=== PATIENT | male | born 1955 | race African-American/Black ===

== ENCOUNTER 2019-06-03 05:36 | Inpatient (IN) | payer MEDICARE, OTHER ==
[~2019-06-03] VITALS: Ht 182.9 cm; Wt 90.3 kg
[~2019-06-03 05:36] MED LIST: ALFUZOSIN HCL10 MG PO; AMLODIPINE BESY10 MG ORAL; AZITHROMYCIN250 MG ORAL; NEVIRAPINE200 MG PO; antiviral
[2019-06-03] MEDS ORDERED: ATORVASTATIN CA20 MG ORAL (05:46)
[2019-06-03] MEDS ORDERED: TRIUMEQ 600-501 EACH PO (05:46)
--- NOTE | 2019-06-03 06:07 | Emergency Room Report ---
History of Present Illness General Chief Complaint: Chest Pain Source: Patient (RafiaAugustine [facility]) Present Illness HPI Patient presents with complaints of midsternal chest pain sharp Reports that he had discomfort 2 days ago while in [place] however it has persisted Denies any pleurisy denies any shortness of breath denies any vomiting or diarrhea Patient feels that he gets more short of breath with any exertion Denies any back or flank pain Patient reports that he feels that he has the flu as well Patient also reports falling about 1 month ago in a ditch in [place] injured his left lower leg But feels that it is also improving (Augustine Morataya DO) Allergies: Coded Allergies: ERYTHROMYCIN BASE (Verified Allergy, Unknown, 05/10/15) Patient History Past Medical History: see triage record Reviewed Nursing Documentation: PMH: Agreed; PSxH: Agreed (Augustine Morataya DO) Nursing Documentation-PMH Past Medical History: No History, Except For Hx Hypertension: Yes Hx Cancer: Yes - kidney (Augustine Morataya DO) Review of Systems All Other Systems: negative except mentioned in HPI (Augustine Morataya DO) Physical Exam Vital Signs Date Time Temp Pulse Resp B/P (MAP) Pulse Ox O2 Delivery O2 Flow Rate FiO2 06/03/19 05:39 97.3 62 16 174/102 (126) 99 Room Air Sp02 EP Interpretation: reviewed, normal General Appearance: well appearing, no apparent distress Head: normocephalic, atraumatic Eyes: bilateral eye PERRL, bilateral eye EOMI ENT: hearing grossly normal, normal pharynx, TMs + canals normal, uvula midline Neck: full range of motion, supple, no meningismus, no bony tend Respiratory: lungs clear, normal breath sounds, no rhonchi, no respiratory distress, no retraction, no accessory muscle use Cardiovascular #1: normal peripheral pulses, regular rate, rhythm, no edema, no gallop, no JVD, no murmur Gastrointestinal: normal bowel sounds, non tender, soft, no mass, no organomegaly, non-distended, no guarding, no hernia, no pulsatile mass, no rebound Genitourinary: no CVA tenderness Musculoskeletal: other - Evidence of healing wound left anterior tibial area distally and mid region no obvious surrounding erythema Neurologic: motor strength/tone normal, photograph tinter III-XII nml as tested, oriented x3 , sensory intact, responsive Psychiatric: mood/affect normal Skin: other - As above Lymphatic: normal inspection, no adenopathy (Augustine Morataya DO) Medical Decision Making Diagnostic Impression: Primary Impression: ACS (acute coronary syndrome) ER Course Patient is a fairly complex patient with multiple differential to consideration including but not limited to cardiac cardiopulmonary and vascular emergencies Patient has extensive blood work initiated with imaging study Provided with aspirin here initially is pain-free upon reevaluation and nitroglycerin was held Labs Test 06/03/19 05:55 06/03/19 14:50 06/04/19 04:40 White Blood Count 5.0 K/UL (4.8-10.8) Red Blood Count 5.17 M/UL (4.70-6.10) Hemoglobin 14.5 G/DL (14.2-18.0) Hematocrit 44.2 % (42.0-52.0) Mean Corpuscular Volume 86 FL (80-99) Mean Corpuscular Hemoglobin 28.0 PG (27.0-31.0) Mean Corpuscular Hemoglobin Concent 32.8 G/DL (32.0-36.0) Red Cell Distribution Width 12.9 % (11.6-14.8) Platelet Count 67 K/UL (150-450) Mean Platelet Volume 11.5 FL (6.5-10.1) Neutrophils (%) (Auto) % (45.0-75.0) Lymphocytes (%) (Auto) % (20.0-45.0) Monocytes (%) (Auto) % (1.0-10.0) Eosinophils (%) (Auto) % (0.0-3.0) Basophils (%) (Auto) % (0.0-2.0) Differential Total Cells Counted 100 Neutrophils % (Manual) 28 % (45-75) Lymphocytes % (Manual) 64 % (20-45) Monocytes % (Manual) 6 % (1-10) Eosinophils % (Manual) 2 % (0-3) Basophils % (Manual) 0 % (0-2) Band Neutrophils 0 % (0-8) Platelet Estimate Adequate Platelet Morphology See comment Clumped Platelets 2+ Red Blood Cell Morphology Normal Sodium Level 139 MMOL/L (136-145) 137 MMOL/L (136-145) Potassium Level 4.3 MMOL/L (3.5-5.1) 4.1 MMOL/L (3.5-5.1) Chloride Level 103 MMOL/L (98-107) 103 MMOL/L (98-107) Carbon Dioxide Level 30 MMOL/L (21-32) 24 MMOL/L (21-32) Anion Gap 6 mmol/L (5-15) 10 mmol/L (5-15) Blood Urea Nitrogen 23 mg/dL (7-18) 22 mg/dL (7-18) Creatinine 1.4 MG/DL (0.55-1.30) 1.2 MG/DL (0.55-1.30) Estimat Glomerular Filtration Rate > 60 mL/min (>60) > 60 mL/min (>60) Glucose Level 97 MG/DL (74-106) 108 MG/DL (74-106) Calcium Level 9.8 MG/DL (8.5-10.1) 9.2 MG/DL (8.5-10.1) Total Bilirubin 0.7 MG/DL (0.2-1.0) 0.6 MG/DL (0.2-1.0) Aspartate Amino Transf (AST/SGOT) 62 U/L (15-37) 43 U/L (15-37) Alanine Aminotransferase (ALT/SGPT) 49 U/L (12-78) 38 U/L (12-78) Alkaline Phosphatase 109 U/L (46-116) 87 U/L (46-116) Troponin I 0.003 ng/mL (0.000-0.056) 0.008 ng/mL (0.000-0.056) 0.000 ng/mL (0.000-0.056) Pro-B-Type Natriuretic Peptide 51 pg/mL (0-125) Total Protein 9.8 G/DL (6.4-8.2) 8.2 G/DL (6.4-8.2) Albumin 4.5 G/DL (3.4-5.0) 3.5 G/DL (3.4-5.0) Globulin 5.3 g/dL 4.7 g/dL Albumin/Globulin Ratio 0.8 (1.0-2.7) 0.7 (1.0-2.7) Lipase 354 U/L (73-393) Triglycerides Level 106 MG/DL (30-150) Cholesterol Level 264 MG/DL (< 200) LDL Cholesterol 178 mg/dL (<100) HDL Cholesterol 40 MG/DL (40-60) Cholesterol/HDL Ratio 6.6 (3.3-4.4) Thyroid Stimulating Hormone (TSH) 1.006 uiU/mL (0.358-3.740) (Augustine Morataya DO) ER Course Please see above note. Patient remains pain-free. Evaluated by Dr. Becerril in ED. (Александр Richardson MD) EKG Diagnostic Results Rate: normal Rhythm: NSR ST Segments: other - Nonspecific ST changes (Augustine Morataya DO) Rhythm Strip Diag. Results EP Interpretation: yes Rate: 60 Rhythm: NSR, no PVC's, no ectopy (Augustine Morataya DO) Rhythm: NSR, no PVC's, no ectopy (Александр Richardson MD) Chest X-Ray Diagnostic Results Chest X-Ray Diagnostic Results : Chest X-Ray Ordered: Yes # of Views/Limited/Complete: 1 View Indication: Chest Pain EP Interpretation: Yes Interpretation: no consolidation, no effusion, no pneumothorax Impression: No acute disease Electronically Signed by: Augustine Morataya DO (Augustine Morataya DO) Last Vital Signs Date Time Temp Pulse Resp B/P (MAP) Pulse Ox O2 Delivery O2 Flow Rate FiO2 06/03/19 05:39 97.3 62 16 174/102 (126) 99 Room Air Status: improved (Augustine Morataya DO) Last Vital Signs Date Time Temp Pulse Resp B/P (MAP) Pulse Ox O2 Delivery O2 Flow Rate FiO2 06/03/19 20:00 98.1 76 20 131/79 (96) 100 06/03/19 14:58 Room Air Status: improved (Александр Richardson MD) Disposition: ADMITTED INPATIENT Condition: Serious Augustine Morataya DO Jun 03, 2019 06:08 Александр Richardson MD Jun 03, 2019 20:20
[2019-06-03 06:08] VITALS: BP 174/102
[2019-06-03 06:39] LABS: HEMATOCRIT 44.2 % (42.0-52.0); HEMOGLOBIN 14.5 G/DL (14.2-18.0); MEAN CORPUSCULAR VOLUME 86 FL (80-99); PLATELET COUNT 67 K/UL (150-450); RED BLOOD COUNT 5.17 M/UL (4.70-6.10); RED CELL DISTRIBUTION WIDTH 12.9 % (11.6-14.8)
[2019-06-03 06:53] LABS: ANION GAP 6 mmol/L (5-15); BLOOD UREA NITROGEN 23 mg/dL (7-18); CALCIUM 9.8 MG/DL (8.5-10.1); CARBON DIOXIDE 30 MMOL/L (21-32); CHLORIDE 103 MMOL/L (98-107); CREATININE 1.4 MG/DL (0.55-1.30); POTASSIUM 4.3 MMOL/L (3.5-5.1); SODIUM 139 MMOL/L (136-145)
[2019-06-03 07:04] LABS: ALANINE AMINOTRANSFERASE 49 U/L (12-78); ALBUMIN 4.5 G/DL (3.4-5.0); ALBUMIN/GLOBULIN RATIO 0.8 (1.0-2.7); ALKALINE PHOSPHATASE 109 U/L (46-116); ASPARTATE AMINO TRANSFERASE 62 U/L (15-37); BILIRUBIN,TOTAL 0.7 MG/DL (0.2-1.0)
[2019-06-03 07:15] VITALS: BP 168/95
[2019-06-03 09:10] VITALS: BP 174/101
[2019-06-03 12:00] VITALS: BP 159/95
--- NOTE | 2019-06-03 12:08 | Diagnostic Imaging Report ---
Indication: Chest pain Technique: One view of the chest Comparison: 11/10/2005 Findings: Lungs and pleural spaces are clear. Heart size is normal. No significant interim change Impression: No acute process
[2019-06-03] MEDS ORDERED: Zolpidem 5mg tab ORAL PRN (13:30)
[2019-06-03] MEDS ORDERED: Milk of Magnesia 30ml Ud ORAL PRN (13:30)
[2019-06-03] MEDS ORDERED: HydrALAZINE 25mg tab ORAL PRN (13:30)
[2019-06-03] MEDS: Aspirin Baby 81mg ORAL SCH (14:09)
[2019-06-03 16:00] VITALS: BP 137/80
[2019-06-03 20:00] VITALS: BP 131/79
[2019-06-03] MEDS: Atorvastatin 20mg tab ORAL SCH (20:40)
[2019-06-04] VITALS (7 sets, daily range): BP systolic 124–157; BP diastolic 76–97
--- NOTE | 2019-06-04 03:30 | Consultation ---
DATE OF CONSULTATION: 06/03/2019 CARDIOLOGY CONSULTATION CONSULTING PHYSICIAN: Александр Thakur M.D. REQUESTING PHYSICIAN: Angel Becerril M.D. REASON FOR CONSULTATION: Chest pain. HISTORY OF PRESENT ILLNESS: This is a 64-year-old male, presented to the emergency room today complaining of several days of chest discomfort and shortness of breath on exertion. He notes that he has not had any cough or sputum production, but he does feel congested and as if he had the flu. The patient has been in [place] for almost a year during a sabbatical. He notes that he ran out of his usual blood pressure and HIV medications four to six months ago. PAST MEDICAL HISTORY: Includes hypertension, history of kidney cancer with nephrectomy, HIV positive, hyperlipidemia, and prostatic hypertrophy. ALLERGIES: Erythromycin. PRESCRIBED MEDICATIONS: Reviewed and reconciled. FAMILY HISTORY: Noncontributory. SOCIAL HISTORY: Denies smoking, alcohol, or substance abuse. REVIEW OF SYSTEMS: A ten-point review of systems performed. No loss of vision or hearing. No history of positive PPD. No prior stress test. No history of irregular heartbeats or rheumatic heart disease. No illnesses during his recent travel. No history of seizure or stroke. He does have single kidney as described above. He has not noted any change in bowel habits. There is no known history of diabetes or thyroid disorder. He has been prescribed statin therapy in the past. The patient states that he injured his right foot with a fall about a month ago. PHYSICAL EXAMINATION: GENERAL: Well developed and well nourished, in no acute distress. VITAL SIGNS: Blood pressure in the emergency room 174/102, heart rate 62, respiratory rate 16, afebrile, and room air oxygen saturation 99%. HEENT: Conjunctivae pink. Sclerae are anicteric. Oropharynx clear. NECK: Supple. Jugular venous pressure is slightly elevated. LUNGS: With few rales. CARDIAC: Regular rhythm and rate. Normal S1, S2 with a fourth heart sound. ABDOMEN: Soft and nontender. No hepatosplenomegaly. EXTREMITIES: Without edema. There is a wound healing on the left anterior tibia. LABORATORY AND DIAGNOSTIC DATA: EKG with sinus rhythm, nonspecific T-wave abnormality. Troponin level is negative. IMPRESSION: 1. Hypertensive heart disease. 2. Acute on chronic diastolic congestive heart failure. 3. Acute myocardial ischemia. 4. History of hyperlipidemia. 5. HIV AIDS. 6. Medication noncompliance due to travel history. PLAN: 1. Cardiac monitoring. 2. Serial troponins. 3. Restart and titrate cardiovascular regimen for blood pressure control and antianginal benefits. 4. Antiplatelet therapy and statin drug to be resumed. 5. Echocardiogram to be obtained. 6. We will follow subsequent assessment of coronary flow reserve. 7. We will follow once preliminary studies are obtained and blood pressure control has been achieved. 8. Natriuretic peptide assay will be trended. Александр Thakur M.D. DR: SUSANNA JOB#: [id number] CC:
[2019-06-04 06:16] LABS: ALANINE AMINOTRANSFERASE 38 U/L (12-78); ALBUMIN 3.5 G/DL (3.4-5.0); ALBUMIN/GLOBULIN RATIO 0.7 (1.0-2.7); ALKALINE PHOSPHATASE 87 U/L (46-116); ANION GAP 10 mmol/L (5-15); ASPARTATE AMINO TRANSFERASE 43 U/L (15-37); BILIRUBIN,TOTAL 0.6 MG/DL (0.2-1.0); BLOOD UREA NITROGEN 22 mg/dL (7-18); CALCIUM 9.2 MG/DL (8.5-10.1); CARBON DIOXIDE 24 MMOL/L (21-32); CHLORIDE 103 MMOL/L (98-107); CHOLESTEROL 264 MG/DL (< 200); CREATININE 1.2 MG/DL (0.55-1.30); HDL CHOLESTEROL 40 MG/DL (40-60); POTASSIUM 4.1 MMOL/L (3.5-5.1); SODIUM 137 MMOL/L (136-145); TRIGLYCERIDES 106 MG/DL (30-150)
[2019-06-04 07:41] LABS: HEMATOCRIT 57.2 % (42.0-52.0); MEAN CORPUSCULAR VOLUME 84 FL (80-99); PLATELET COUNT 145 K/UL (150-450); RED BLOOD COUNT 6.82 M/UL (4.70-6.10); RED CELL DISTRIBUTION WIDTH 12.7 % (11.6-14.8); WHITE BLOOD COUNT 5.2 K/UL (4.8-10.8)
[2019-06-04 07:49] LABS: HEMOGLOBIN 19.4 G/DL (14.2-18.0)
[2019-06-04] MEDS: Neosporin Oint 15gm TOPIC SCH ×2 (08:00→18:02)
--- NOTE | 2019-06-04 08:00 | History and Physical Report ---
DATE OF ADMISSION: 06/03/2019 CHIEF COMPLAINT: Chest pain. HISTORY OF PRESENT ILLNESS: The patient is a pleasant 64-year-old male. He has a history of HIV, hypertension, history of nephrectomy, hyperlipidemia, and BPH, who presented with complaints of worsening chest pain. According to the patient, he was well. He had recently travelled to [place]. He had been noted the onset of exertional chest pain. He notes that previously he could walk up hills without any problem, but now when walking up hills, he gets chest pain. The pain is relieved with rest. He denies any fevers or chills. He has had no cough. He does feel that he has had "flu symptoms." He also notes that he got a spider bite at the back of his neck. On evaluation in the emergency room, his troponin was negative. EKG was unremarkable. In light of the patient's worsening exertional chest pain, he is now admitted for further evaluation and care. PAST MEDICAL HISTORY: As above. PAST SURGICAL HISTORY: Includes nephrectomy. CURRENT MEDICATIONS: Reconciled and reviewed. ALLERGIES: Include erythromycin. FAMILY HISTORY: Noncontributory. SOCIAL HISTORY: Negative for tobacco, ethanol, or drugs. REVIEW OF SYSTEMS: GENERAL: No fevers or chills. HEENT: No headaches or visual changes. CARDIOPULMONARY: Positive chest pain. Positive shortness of breath. GASTROINTESTINAL: No nausea or vomiting. GENITOURINARY: No urgency or frequency. MUSCULOSKELETAL: No joint pain or swelling. NEUROLOGIC: No evidence of seizures. PHYSICAL EXAMINATION: VITAL SIGNS: Temperature 97.9, pulse 67, respirations 20, and blood pressure 137/86. GENERAL: The patient is well developed, no apparent distress. HEART: Regular rate and rhythm. LUNGS: Clear. ABDOMEN: Soft, nontender, nondistended. EXTREMITIES: Without clubbing, cyanosis, or edema. LABORATORY DATA: White count 5, hemoglobin 14, hematocrit 44, platelet count of 67. Sodium 139, potassium 4.3, creatinine is 1.4. ASSESSMENT: This is a pleasant male with a history of hypertensive heart disease, hyperlipidemia, admitted with complaints of worsening exertional chest pain. PLAN: Serial enzymes. EKGs. Antiplatelet therapy. Continue statin therapy. Cardiology consultation. Stress test per Cardiology. We will check a CD4 count as well as a viral load at the patient's request. . Angel Becerril M.D. DR: TAYLOR JOB#: [id number] CC:
[2019-06-04] MEDS: Aspirin Baby 81mg ORAL SCH (08:57)
[2019-06-04] MEDS: Heparin 5000 units/ml inj SUBQ SCH ×2 (08:58→20:23)
--- NOTE | 2019-06-04 15:45 | Consultation ---
DATE OF CONSULTATION: 06/04/2019 INFECTIOUS DISEASES CONSULTATION CONSULTING PHYSICIAN: Alma Salazar M.D. REFERRING PHYSICIAN: Александр Thakur M.D. REASON FOR CONSULTATION: Fever. 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 He recently had a trip to [facility]. He denies any headache. An Infectious Diseases consultation has been obtained for antibiotics. PAST MEDICAL HISTORY: 1. History of HIV. 2. Hypertension. 3. History of Wilms tumor status post nephrectomy. 4. Hyperlipidemia. 5. Benign prostatic hypertrophy. SOCIAL HISTORY: He does not smoke, drink, or use drugs. FAMILY HISTORY: His mother had leukemia. His father had heart disease. REVIEW OF SYSTEMS: RESPIRATORY: He had fever and chills. He has cough. No shortness of breath. He had chest pain that is improved. CARDIAC: No chest pain currently. No palpitation. No dizziness. No syncope. GASTROINTESTINAL: No nausea. No vomiting. No abdominal pain or diarrhea. MUSCULOSKELETAL: He denies any headaches. MEDICATIONS: As an inpatient, he is on Neosporin ointment, atorvastatin, subcutaneous heparin, Uroxatral, amlodipine, aspirin, hydralazine, Tylenol, Ambien, milk of magnesia. ALLERGIES: . PHYSICAL EXAMINATION: VITAL SIGNS: Temperature of 98.8, T-max of 98.8, pulse of 76, respiratory rate 20, blood pressure 131/79, O2 saturation of 100%. HEENT: Pupils are equally reactive to light and accommodation. Mouth appears clean without thrush. NECK: Supple. No adenopathy. No JVD. CARDIOVASCULAR: Regular rate and rhythm. No murmurs. LUNGS: Clear to auscultation bilaterally. No crackles. No wheezes. ABDOMEN: Soft and nontender. No organomegaly. EXTREMITIES: No cyanosis, no clubbing, no edema. LABORATORY AND DIAGNOSTIC DATA: White count 5.2, hemoglobin 19.4, hematocrit 57.2, MCV 84, platelet count of 145. Sodium 137, potassium 4.1, chloride 103, bicarb 24, BUN 22, creatinine 1.2, glucose 108, calcium 9.2. Total bilirubin 0.6, AST 43, ALT 38, alkaline phosphatase 87. Troponin 0. Total protein 8.2, albumin 3.5. Cholesterol of 264. HIV viral load is pending. Chest x-ray showing no acute process. ASSESSMENT: This is a 64-year-old gentleman with history of HIV, Wilms tumor status post nephrectomy, benign prostatic hypertrophy, hyperlipidemia who comes in with fevers. 1. Fevers that is resolved. 2. HIV. 3. Hypertension. 4. Wilms tumor status post nephrectomy. PLAN: 1. Continue off antibiotics. 2. We will order T-cell count. 3. We will follow up on the HIV viral load. 4. We will follow up cultures. I would like to thank, Dr. Thakur, for this consultation. Alma Salazar M.D. DR: Nathanael JOB#: [id number] CC: Александр Thakur M.D.
[2019-06-04] MEDS: hydroCHLOROthiazide 12.5mg TAB ORAL SCH (18:02)
[2019-06-04] MEDS: Atorvastatin 20mg tab ORAL SCH (20:23)
[2019-06-05] VITALS: BP 126/84
--- NOTE | 2019-06-05 03:30 | Progress Note ---
DATE: 06/04/2019 CARDIOLOGY PROGRESS NOTE SUBJECTIVE: The patient has no chest pain or shortness of breath at rest. He states that his symptoms have been exertional. He notes feeling some congestion and flu-like symptoms today. Nasal swabs are obtained, results are pending. OBJECTIVE: VITAL SIGNS: Blood pressure 153/89 earlier, now 135/86, heart rate 80, respiratory rate 18, and afebrile. HEENT: No nasal discharge. LUNGS: Clear. CARDIAC: Regular. No murmur. ABDOMEN: Soft. EXTREMITIES: No edema. LABORATORY AND DIAGNOSTIC DATA: Echocardiogram with normal ejection fraction. Nasal swab negative for influenza. IMPRESSION: 1. Hypertensive heart disease. 2. Dyslipidemia. 3. Acute diastolic congestive heart failure. 4. Acute coronary insufficiency, likely due to medication noncompliance. PLAN: 1. Continue anti-platelet and anti-lipid drugs. 2. Continue up titration and optimization of antihypertensive control. 3. Myocardial perfusion scan for assessment of coronary flow reserve to follow. Александр Thakur M.D. DR: CYDNEY JOB#: [id number] CC:
[2019-06-05 04:00] VITALS: BP 123/77
[2019-06-05 08:00] VITALS: BP 150/97
--- NOTE | 2019-06-05 08:52 | General Progress Note ---
Assessment/Plan Problem List: (1) HIV disease ICD Codes: B20 - Human immunodeficiency virus [HIV] disease SNOMED: 53897056 (2) Bronchitis ICD Codes: J40 - Bronchitis, not specified as acute or chronic SNOMED: 33188988 (3) ACS (acute coronary syndrome) ICD Codes: I24.9 - Acute ischemic heart disease, unspecified SNOMED: 295001698 Status: stable, progressing Assessment/Plan: stress test antiplt rx wound care thick and thin smear Subjective ROS Limited/Unobtainable: No Constitutional: Reports: fever, weakness HEENT: Reports: no symptoms Cardiovascular: Reports: no symptoms Respiratory: Reports: cough Gastrointestinal/Abdominal: Reports: no symptoms Genitourinary: Reports: no symptoms Neurologic/Psychiatric: Reports: no symptoms Endocrine: Reports: no symptoms Hematologic/Lymphatic: Reports: no symptoms Allergies: Coded Allergies: ERYTHROMYCIN BASE (Verified Allergy, Unknown, 05/10/15) All Systems: reviewed and negative except above Subjective no chest pain worried he has malaria because he was recently in [place] and bitten by mosquitos. Objective Last 24 Hour Vital Signs Date Time Temp Pulse Resp B/P (MAP) Pulse Ox O2 Delivery O2 Flow Rate FiO2 06/05/19 04:00 98.1 70 18 123/77 (92) 98 06/05/19 04:00 69 06/05/19 00:00 98.0 89 19 126/84 (98) 96 06/05/19 00:00 71 06/04/19 21:00 Room Air 06/04/19 20:00 98.1 80 19 124/81 (95) 95 06/04/19 20:00 81 06/04/19 16:00 58 06/04/19 15:59 97.5 80 18 135/86 (102) 97 06/04/19 12:00 66 06/04/19 12:00 97.7 70 20 153/89 (110) 97 06/04/19 09:00 Room Air 06/04/19 08:57 66 139/82 Intake and Output 06/04/19 06/05/19 18:59 06:59 Intake Total 600 ml Balance 600 ml Intake Oral 600 ml # Voids 4 4 # Bowel Movements 1 Height (Feet): 6 Weight (Pounds): 199 General Appearance: WD/WN, alert Neck: supple Cardiovascular: normal rate Respiratory/Chest: chest wall non-tender, lungs clear, normal breath sounds Abdomen: normal bowel sounds, non tender, soft, no organomegaly Edema: no edema noted Arm (L), no edema noted Arm (R), no edema noted Leg (L), no edema noted Leg (R), no edema noted Pedal (L), no edema noted Pedal (R), no edema noted Generalized Angel Becerril MD Jun 05, 2019 08:52
[2019-06-05] MEDS: hydroCHLOROthiazide 12.5mg TAB ORAL SCH (08:54)
[2019-06-05] MEDS: Aspirin Baby 81mg ORAL SCH (08:54)
[2019-06-05] MEDS: Neosporin Oint 15gm TOPIC SCH ×2 (08:54→18:06)
[2019-06-05] MEDS: Heparin 5000 units/ml inj SUBQ SCH ×2 (08:54→20:21)
[2019-06-05] MEDS ORDERED: Neosporin Oint 15gm TOPIC SCH (09:00)
[2019-06-05 09:33] LABS: BASOPHILS % (AUTO) 1.5 % (0.0-2.0); EOSINOPHILS % (AUTO) 0.8 % (0.0-3.0); HEMATOCRIT 44.1 % (42.0-52.0); HEMOGLOBIN 15.4 G/DL (14.2-18.0); LYMPHOCYTES % (AUTO) 47.8 % (20.0-45.0); MEAN CORPUSCULAR VOLUME 81 FL (80-99); MONOCYTES % (AUTO) 8.7 % (1.0-10.0); NEUTROPHILS % (AUTO) 41.2 % (45.0-75.0); PLATELET COUNT 178 K/UL (150-450); RED BLOOD COUNT 5.44 M/UL (4.70-6.10); RED CELL DISTRIBUTION WIDTH 11.2 % (11.6-14.8)
--- NOTE | 2019-06-05 10:29 | Infectious Diseases Prog Note ---
Assessment/Plan Assessment/Plan antibiotics : none A 1. HIV 2. fever resolved 3. hypertension P 1. continue off antibiotics 2. continue neomycin ointment 3. malaria smear Subjective Constitutional: Denies: fever, chills Respiratory: Reports: productive cough - decreased; Denies: shortness of breath Gastrointestinal/Abdominal: Denies: nausea, vomiting, diarrhea Musculoskeletal: Denies: pain Allergies: Coded Allergies: ERYTHROMYCIN BASE (Verified Allergy, Unknown, 05/10/15) Objective Vital Signs Last 24 Hour Vital Signs Date Time Temp Pulse Resp B/P (MAP) Pulse Ox O2 Delivery O2 Flow Rate FiO2 06/05/19 09:00 Room Air 06/05/19 08:54 75 150/97 06/05/19 08:00 97.2 75 20 150/97 (114) 98 06/05/19 08:00 70 06/05/19 04:00 98.1 70 18 123/77 (92) 98 06/05/19 04:00 69 06/05/19 00:00 98.0 89 19 126/84 (98) 96 06/05/19 00:00 71 06/04/19 21:00 Room Air 06/04/19 20:00 98.1 80 19 124/81 (95) 95 06/04/19 20:00 81 06/04/19 16:00 58 06/04/19 15:59 97.5 80 18 135/86 (102) 97 06/04/19 12:00 66 06/04/19 12:00 97.7 70 20 153/89 (110) 97 Height (Feet): 6 Weight (Pounds): 199 Respiratory/Chest: lungs clear Cardiovascular: normal rate, regular rhythm, no gallop/murmur Abdomen: soft, non tender Extremities: no edema Microbiology Date/Time Source Procedure Growth Status 06/04/19 17:00 Nose - Final Complete 06/04/19 17:00 Nose - Final Complete Laboratory Tests Test 06/05/19 09:08 White Blood Count 5.0 K/UL (4.8-10.8) Red Blood Count 5.44 M/UL (4.70-6.10) Hemoglobin 15.4 G/DL (14.2-18.0) Hematocrit 44.1 % (42.0-52.0) Mean Corpuscular Volume 81 FL (80-99) Mean Corpuscular Hemoglobin 28.4 PG (27.0-31.0) Mean Corpuscular Hemoglobin Concent 35.0 G/DL (32.0-36.0) Red Cell Distribution Width 11.2 % (11.6-14.8) L Platelet Count 178 K/UL (150-450) Mean Platelet Volume 7.6 FL (6.5-10.1) Neutrophils (%) (Auto) 41.2 % (45.0-75.0) L Lymphocytes (%) (Auto) 47.8 % (20.0-45.0) H Monocytes (%) (Auto) 8.7 % (1.0-10.0) Eosinophils (%) (Auto) 0.8 % (0.0-3.0) Basophils (%) (Auto) 1.5 % (0.0-2.0) Parasite Exam Pending Current Medications Medications (Trade) Dose Ordered Sig/[place] Route PRN Reason Start Time Stop Time Status Last Admin Dose Admin Acetaminophen (Tylenol) 650 mg Q4H PRN ORAL Mild Pain/Temp > 100.5 06/03/19 13:30 07/03/19 13:29 Alfuzosin HCl (Uroxatrol) 10 mg DAILY ORAL 06/03/19 14:00 07/03/19 13:59 06/05/19 08:53 Amlodipine Besylate (Norvasc) 10 mg DAILY ORAL 06/03/19 13:30 07/03/19 13:29 06/05/19 08:54 Aspirin (ASA) 81 mg DAILY ORAL 06/03/19 13:30 07/03/19 13:29 06/05/19 08:54 Atorvastatin Calcium (Lipitor) 40 mg BEDTIME ORAL 06/03/19 21:00 07/03/19 20:59 06/04/19 20:23 Heparin Sodium (Porcine) (Heparin 5000 units/ml) 5,000 units EVERY 12 HOURS SUBQ 06/04/19 09:00 07/04/19 08:59 Hydralazine HCl (Apresoline) 25 mg Q6H PRN ORAL SBP above 150 06/03/19 13:30 07/03/19 13:29 06/03/19 14:10 Hydrochlorothiazide (Hydrodiuril) 12.5 mg DAILY ORAL 06/04/19 17:45 07/04/19 17:44 06/05/19 08:54 Magnesium Hydroxide (Mom) 30 ml DAILYPRN PRN ORAL Constipation 06/03/19 13:30 07/03/19 13:29 Neomycin/ Polymyxin/ Bacitracin (Neosporin Oint 15gm) 1 applic TWICE A DAY TOPIC 06/04/19 08:00 07/04/19 07:59 06/05/19 08:54 Zolpidem Tartrate (Ambien) 5 mg HSPRN PRN ORAL Insomnia 06/03/19 13:30 06/10/19 13:29 Alma Salazar MD Jun 05, 2019 10:29
[2019-06-05 12:00] VITALS: BP 146/96
[2019-06-05 16:00] VITALS: BP 116/76
[2019-06-05] MEDS ORDERED: Lexiscan 0.4mg/5ml syringe IV PRN (17:57)
[2019-06-05 20:00] VITALS: BP 130/72
[2019-06-05] MEDS: Atorvastatin 20mg tab ORAL SCH (21:09)
--- NOTE | 2019-06-06 02:15 | Progress Note ---
DATE: 06/05/2019 CARDIOLOGY PROGRESS NOTE SUBJECTIVE: The patient still feels weak and congested, but improved. Nasal swab negative for influenza. No fevers noted. No shortness of breath. OBJECTIVE: VITAL SIGNS: Blood pressure 146/96 earlier, now 116/76, heart rate 71, respiratory rate 18, and afebrile. LUNGS: Clear. CARDIAC: Regular. Normal S1, S2 with a fourth heart sound. ABDOMEN: Soft. EXTREMITIES: No edema. IMPRESSION: 1. Anginal syndrome. 2. Hypertensive urgency, now recovered. 3. Acute on chronic diastolic congestive heart failure, resolved with therapies. 4. HIV/AIDS. 5. Dyslipidemia. PLAN: 1. Maintain current regimen. 2. Scheduling for myocardial perfusion scan with exercise stress. 3. Continue titration of antihypertensive regimen. Александр Thakur M.D. DR: CYDNEY JOB#: [id number] CC:
[2019-06-06 04:00] VITALS: BP 136/91
--- NOTE | 2019-06-06 07:40 | General Progress Note ---
Assessment/Plan Problem List: (1) HIV disease ICD Codes: B20 - Human immunodeficiency virus [HIV] disease SNOMED: 62116332 (2) Bronchitis ICD Codes: J40 - Bronchitis, not specified as acute or chronic SNOMED: 34968638 (3) ACS (acute coronary syndrome) ICD Codes: I24.9 - Acute ischemic heart disease, unspecified SNOMED: 030230029 Status: stable, progressing Assessment/Plan: stress test today antiplt rx wound care ct left leg Subjective ROS Limited/Unobtainable: No Constitutional: Reports: malaise HEENT: Reports: no symptoms Cardiovascular: Reports: no symptoms Respiratory: Reports: no symptoms Gastrointestinal/Abdominal: Reports: no symptoms Genitourinary: Reports: no symptoms Neurologic/Psychiatric: Reports: no symptoms Endocrine: Reports: no symptoms Hematologic/Lymphatic: Reports: no symptoms Allergies: Coded Allergies: ERYTHROMYCIN BASE (Verified Allergy, Unknown, 05/10/15) All Systems: reviewed and negative except above Subjective no chest pain worried he has malaria because he was recently in [place] and bitten by mosquitos. worried he has "bone infection" on left nonhealing leg wound Objective Last 24 Hour Vital Signs Date Time Temp Pulse Resp B/P (MAP) Pulse Ox O2 Delivery O2 Flow Rate FiO2 06/06/19 04:00 98.0 74 18 136/91 (106) 98 06/06/19 04:00 70 06/06/19 00:00 70 06/05/19 21:00 Room Air 06/05/19 20:00 92 06/05/19 20:00 98.1 78 19 130/72 (91) 97 06/05/19 16:00 82 06/05/19 16:00 98.1 71 18 116/76 (89) 99 06/05/19 12:00 98.1 71 18 146/96 (113) 99 06/05/19 12:00 72 06/05/19 09:00 Room Air 06/05/19 08:54 75 150/97 06/05/19 08:00 97.2 75 20 150/97 (114) 98 06/05/19 08:00 70 Intake and Output 06/05/19 06/06/19 19:00 07:00 Intake Total 750 ml 240 ml Balance 750 ml 240 ml Intake Oral 750 ml 240 ml # Voids 7 2 # Bowel Movements 1 Laboratory Tests 06/05/19 09:08: White Blood Count 5.0, Red Blood Count 5.44, Hemoglobin 15.4, Hematocrit 44.1, Mean Corpuscular Volume 81, Mean Corpuscular Hemoglobin 28.4, Mean Corpuscular Hemoglobin Concent 35.0, Red Cell Distribution Width 11.2L, Platelet Count 178, Mean Platelet Volume 7.6, Neutrophils (%) (Auto) 41.2L, Lymphocytes (%) (Auto) 47.8H, Monocytes (%) (Auto) 8.7, Eosinophils (%) (Auto) 0.8, Basophils (%) (Auto ) 1.5, Parasite Exam [Pending] Height (Feet): 6 Weight (Pounds): 199 General Appearance: WD/WN, alert Neck: supple Cardiovascular: regular rhythm Respiratory/Chest: chest wall non-tender, lungs clear, normal breath sounds Abdomen: normal bowel sounds, non tender, soft, no organomegaly Edema: no edema noted Arm (L), no edema noted Arm (R), no edema noted Leg (L), no edema noted Leg (R), no edema noted Pedal (L), no edema noted Pedal (R), no edema noted 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
[2019-06-06 08:00] VITALS: BP 148/96
[2019-06-06] MEDS: Heparin 5000 units/ml inj SUBQ SCH ×3 (09:00→21:47)
[2019-06-06] MEDS: hydroCHLOROthiazide 12.5mg TAB ORAL SCH ×2 (09:38→09:47)
[2019-06-06] MEDS: Neosporin Oint 15gm TOPIC SCH ×2 (09:41→18:28)
[2019-06-06] MEDS: Aspirin Baby 81mg ORAL SCH (09:41)
[2019-06-06] MEDS: Lisinopril 20mg tab ORAL SCH (09:44)
--- NOTE | 2019-06-06 10:54 | Infectious Diseases Prog Note ---
Assessment/Plan Assessment/Plan A; HIV , [id number] Diastolic CHF HPN urgency Dyslipidemia P; Will f/u HIV viral load Will f/u malaria test Will f/u left leg CT Subjective ROS Limited/Unobtainable: No Constitutional: Reports: no symptoms Respiratory: Reports: no symptoms Gastrointestinal/Abdominal: Reports: no symptoms Allergies: Coded Allergies: ERYTHROMYCIN BASE (Verified Allergy, Unknown, 05/10/15) Objective Vital Signs Last 24 Hour Vital Signs Date Time Temp Pulse Resp B/P (MAP) Pulse Ox O2 Delivery O2 Flow Rate FiO2 06/06/19 09:44 148/96 06/06/19 09:39 72 148/96 06/06/19 08:00 97.7 72 20 148/96 (113) 98 06/06/19 08:00 72 06/06/19 04:00 98.0 74 18 136/91 (106) 98 06/06/19 04:00 70 06/06/19 00:00 70 06/05/19 21:00 Room Air 06/05/19 20:00 92 06/05/19 20:00 98.1 78 19 130/72 (91) 97 06/05/19 16:00 82 06/05/19 16:00 98.1 71 18 116/76 (89) 99 06/05/19 12:00 98.1 71 18 146/96 (113) 99 06/05/19 12:00 72 Height (Feet): 6 Weight (Pounds): 199 General Appearance: no acute distress HEENT: mucous membranes moist Respiratory/Chest: lungs clear Cardiovascular: normal rate Abdomen: soft, non tender Extremities: no edema, other - left leg bentley deformity Neurologic/Psychiatric: alert, oriented x 3, responsive Microbiology Date/Time Source Procedure Growth Status 06/04/19 17:00 Nose - Final Complete 06/04/19 17:00 Nose - Final Complete Current Medications Medications (Trade) Dose Ordered Sig/[place] Route PRN Reason Start Time Stop Time Status Last Admin Dose Admin Acetaminophen (Tylenol) 650 mg Q4H PRN ORAL Mild Pain/Temp > 100.5 06/03/19 13:30 07/03/19 13:29 Alfuzosin HCl (Uroxatrol) 10 mg Q24H ORAL 06/06/19 21:00 07/06/19 20:59 Amlodipine Besylate (Norvasc) 10 mg DAILY ORAL 06/03/19 13:30 07/03/19 13:29 06/06/19 09:39 Aspirin (ASA) 81 mg DAILY ORAL 06/03/19 13:30 07/03/19 13:29 06/06/19 09:41 Atorvastatin Calcium (Lipitor) 40 mg BEDTIME ORAL 06/03/19 21:00 07/03/19 20:59 06/05/19 21:09 Heparin Sodium (Porcine) (Heparin 5000 units/ml) 5,000 units EVERY 12 HOURS SUBQ 06/04/19 09:00 07/04/19 08:59 Hydralazine HCl (Apresoline) 25 mg Q6H PRN ORAL SBP above 150 06/03/19 13:30 07/03/19 13:29 06/03/19 14:10 Hydrochlorothiazide (Hydrodiuril) 12.5 mg DAILY ORAL 06/04/19 17:45 07/04/19 17:44 06/05/19 08:54 Lisinopril (Prinivil) 20 mg DAILY ORAL 06/06/19 09:00 07/06/19 08:59 06/06/19 09:44 Magnesium Hydroxide (Mom) 30 ml DAILYPRN PRN ORAL Constipation 06/03/19 13:30 07/03/19 13:29 Neomycin/ Polymyxin/ Bacitracin (Neosporin Oint 15gm) 1 applic TWICE A DAY TOPIC 06/04/19 08:00 07/04/19 07:59 06/06/19 09:41 Regadenoson (Lexiscan) 0.4 mg ONCE PRN IV CARDIOLOGY 06/05/19 17:57 06/07/19 23:59 Zolpidem Tartrate (Ambien) 5 mg HSPRN PRN ORAL Insomnia 06/03/19 13:30 06/10/19 13:29 Myron Balbuena MD Jun 06, 2019 10:54
[2019-06-06 12:00] VITALS: BP 144/93
--- NOTE | 2019-06-06 12:29 | Diagnostic Imaging Report ---
Indication: Left leg pain with soft tissue swelling. Concern for infection Technique: CT left lower extremity formed utilizing automated exposure control without intravenous contrast material. Axial and coronal images were generated. CT dose: Total DLP 229.3 mGycm; CTDI vol 3.8 mGy Comparison: None Findings: Limited evaluation of the soft tissues due to lack of IV contrast. Within these limitations: There is mild focal soft tissue swelling involving the anterior soft tissues of the mid leg. The clinical mild skin thickening in this region. Correlate with physical exam to assess for cellulitis. No well-defined/drainable subcutaneous fluid collection to suggest abscess. No intramuscular fluid collection or hematoma. There is no acute fracture or dislocation. The knee and ankle joints are maintained. Mild degenerative changes of the knee joint are noted with tiny osteophytes. There is no focal osteopenia, para sinus or bony erosion. No definite changes to suggest osteomyelitis as questioned clinically. No radiopaque foreign body. Prominent venous structures noted in the medial soft tissues suggesting varicosities. IMPRESSION: * Focal soft tissue swelling involving the anterior soft tissues of the mid leg with equivocal associated skin thickening. Correlation with physical exam recommended to assess for cellulitis. No subcutaneous fluid collection to suggest abscess. * No bony changes noted in the underlying osseous structures to suggest acute osteomyelitis. * No evidence of acute fracture or dislocation. The CT scanner at [facility] is accredited by the [employer] and the scans are performed using protocols designed to limit radiation exposure to as low as reasonably achievable to attain images of sufficient resolution adequate for diagnostic evaluation.
[2019-06-06 16:00] VITALS: BP 120/69
--- NOTE | 2019-06-06 19:36 | Cardiology Report ---
APPROVED REPORT EXAM: Two-dimensional and M-mode echocardiogram with Doppler and color Doppler. INDICATION Angina Pectoris M-Mode DIMENSIONS IVSd1.4 (0.7-1.1cm)Left Atrium (MM)3.5 (1.6-4.0cm) LVDd4.3 (3.5-5.6cm)Aortic Root2.8 (2.0-3.7cm) PWd1.4 (0.7-1.1cm)Aortic Cusp Exc.1.9 (1.5-2.0cm) LVDs2.7 (2.5-4.0cm) PWs1.6 cm Normal left ventricular chamber size, systolic function and wall motion. Left ventricular ejection fraction is estimated to be 60-65%. Mild left ventricular hypertrophy. No evidence of pericardial effusion. All other cardiac chamber sizes are within normal limits. Focal aortic valve sclerosis with adequate cusp excursion. Thickened mitral valve leaflets with normal excursion. Mitral annulus and aortic root calcification. Normal pulmonic valve structure. Normal tricuspid valve structure. IVC at normal size with slight physiologic collapse. A color flow and spectral Doppler study was performed and revealed: Mild mitral regurgitation. Mitral diastolic velocities suggest normal left ventricular diastolic function. Mild tricuspid regurgitation. Tricuspid systolic velocities suggests peak right ventricular systolic pressure of 47 mmHg consistent with moderate pulmonary hypertension. Mild pulmonic regurgitation present.
--- NOTE | 2019-06-06 19:37 | Cardiology Report ---
APPROVED REPORT EKG Measurement Heart [id number] Sinus bradycardia with sinus arrhythmia Nonspecific ST abnormality Abnormal ECG
[2019-06-06 20:00] VITALS: BP 128/84
[2019-06-06] MEDS: Atorvastatin 20mg tab ORAL SCH (21:48)
[2019-06-07] VITALS: BP 118/52
--- NOTE | 2019-06-07 03:30 | Progress Note ---
DATE: 06/06/2019 CARDIOLOGY PROGRESS NOTE SUBJECTIVE: The patient has no chest pain or shortness of breath. Stress test was performed today. He was able to exercise 8 minutes. No chest pain . Myocardial perfusion imaging is pending. No EKG changes were noted. OBJECTIVE: VITAL SIGNS: Blood pressure 144/93 max, presently 128/84, heart rate 76, respiratory rate 18, and afebrile. LUNGS: Clear. CARDIAC: Regular. Normal S1, S2. ABDOMEN: Soft. EXTREMITIES: No edema. DIAGNOSTIC DATA: Left leg CT scan revealed some cellulitic changes. No deep tissue abnormalities. IMPRESSION: 1. Anginal syndrome. 2. Acute on chronic diastolic congestive heart failure. 3. Hypertensive heart disease with uncontrolled blood pressure, off medications. 4. Dyslipidemia. PLAN: Await final perfusion imaging. Expect normal perfusion. If so, we will optimize antihypertensive regimen and encourage outpatient compliance with statin drug. Anti-platelet therapy namely aspirin and prescribe antihypertensive/anti-failure regimen. Александр Thakur M.D. DR: CYDNEY JOB#: [id number] CC:
[2019-06-07] MEDS ORDERED: PRINIVIL20 MG ORAL (06:53)
[2019-06-07] MEDS ORDERED: LIPITOR20 MG ORAL (06:53)
[2019-06-07] MEDS ORDERED: DIURIL25 MG ORAL (06:53)
[2019-06-07 08:00] VITALS: BP 121/75
--- NOTE | 2019-06-07 08:13 | Diagnostic Imaging Report ---
Indications: Chest pain Technique: See cardiology report for details of LexiScan stress testing. During LexiScan infusion, IV administration of 11.1 mCi 99 M technetium Myoview. SPECT and planar images obtained. SPECT images gated to 8 phases of the cardiac cycle were also obtained, and reformatted into cine images for evaluation of ejection fraction. Subsequently, resting images obtained using IV administration 32.5 mCi 99 M technetium Myoview. Comparison:none Findings: Left ventricular ejection fraction estimated at 67%. No discrete focal wall motion abnormalities appreciated. There is no reversible perfusion defect identified to suggest ischemia. IMPRESSION: * EF estimated at 67% * No reversible perfusion defect identified to suggest ischemia.
[2019-06-07] MEDS: Aspirin Baby 81mg ORAL SCH (09:51)
[2019-06-07] MEDS: Lisinopril 20mg tab ORAL SCH (09:51)
[2019-06-07] MEDS: Neosporin Oint 15gm TOPIC SCH (09:54)
[2019-06-07] MEDS: Heparin 5000 units/ml inj SUBQ SCH (09:54)
--- NOTE | 2019-06-07 11:15 | Discharge Summary ---
DATE OF ADMISSION: 06/03/2019 DATE OF DISCHARGE: 06/07/2019 ADMISSION DIAGNOSES: 1. Chest pain. 2. Hypertension. 3. History of HIV. DISCHARGE DIAGNOSES: 1. Chest pain. 2. Hypertension. 3. History of HIV. 4. Right leg cellulitis. HOSPITAL COURSE: This patient is a pleasant male, who presented with complaints of exertional chest pain. He was ruled out for ID with serial enzymes and EKGs. He had a normal stress test. He also had a CAT scan of the leg because of the wound, was diagnosed with cellulitis. He will be discharged home on oral antibiotic therapy for an additional week. DISCHARGE MEDICATIONS: Please see discharge medication list for discharge medications. DIET: Cardiac diet. ACTIVITIES: Ad-hernan. FOLLOWUP: He will follow up with his PMD in one week. Angel Becerril M.D. DR: TAYLOR JOB#: [id number] CC:
[2019-06-07 12:00] VITALS: BP 131/78
--- NOTE | 2019-06-08 01:30 | Progress Note ---
DATE: 06/07/2019 CARDIOLOGY PROGRESS NOTE SUBJECTIVE: The patient is feeling better. Results of myocardial perfusion scan were obtained and discussed with the patient. No reversible ischemia. No abnormalities noted. Normal ejection fraction. OBJECTIVE: VITAL SIGNS: Blood pressure 121/75, pulse 77, and respiratory rate 18. LUNGS: Clear. CARDIAC: Regular rhythm and rate. Normal S1 and S2 with a fourth heart sound. ABDOMEN: Soft. EXTREMITIES: No edema. IMPRESSION: 1. Acute coronary insufficiency due to severe uncontrolled hypertension and acute on chronic diastolic congestive heart failure. 2. Hypertensive heart disease with hypertensive urgency, now resolved, on medications. 3. Hyperlipidemia, now resumed on statin drugs. 4. Acute on chronic diastolic congestive heart failure, now clinically compensated. PLAN: 1. Outpatient followup on current medication regimen. 2. The patient encouraged to comply with medications, long-term. 3. Made aware of the risk of recurrent symptoms without medication compliance. 4. Outpatient followup arranged. Александр Thakur M.D. DR: BEV JOB#: [id number] CC:
== END 2019-06-07 16:29 | disposition home or self-care (01) | DRG 304 ==
LOC: EMR 06:00 → 2W 06:42 → EDBEDREQ 10:28 → 2E 06-04 07:53
DX: I16.0 Hypertensive urgency (principal); I50.33 Acute on chronic diastolic (congestive) heart failure; L03.115 Cellulitis of right lower limb; I24.8 Other forms of acute ischemic heart disease; B20 Human immunodeficiency virus [HIV] disease; I11.0 Hypertensive heart disease with heart failure; Z88.1 Allergy status to other antibiotic agents; N40.0 Benign prostatic hyperplasia without lower urinary tract symptoms; Z85.528 Personal history of other malignant neoplasm of kidney; Z90.5 Acquired absence of kidney; E78.5 Hyperlipidemia, unspecified; Z91.14 Patient's other noncompliance with medication regimen; J40 Bronchitis, not specified as acute or chronic
CPT/HCPCS: 36415; 71045; 78452; 80053; 80061; 83690; 83880; 84443; 84484; 85007; 85025; 86360; 86710; 87207; 87536; 93005; 93017; 93306; 99285

== ENCOUNTER 2019-09-21 22:48 | Inpatient (IN) | payer MEDICARE, OTHER ==
[~2019-09-21] VITALS: Ht 182.9 cm; Wt 90.7 kg
[~2019-09-21 22:48] MED LIST changes: +ATORVASTATIN CA20 MG ORAL; +DIURIL25 MG ORAL; +LIPITOR20 MG ORAL; +PRINIVIL20 MG ORAL; +TRIUMEQ 600-501 EACH PO
--- NOTE | 2019-09-21 23:00 | NUR ---
ED Nurse Note: Pt walked into ED for c/o cough, sudden onset weakness, SOB and fever x 4 days. 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 Pt is breathing normal and unlabored, no cardiac distress. Pt is aaox4, ambulatory with steady gait. Pt temp 99.9f upon ED triage.
--- NOTE | 2019-09-21 23:13 | Emergency Room Report ---
History of Present Illness General Chief Complaint: Flu Like Symptoms Source: Patient Present Illness HPI This a 64-year-old male with a history of HIV. He is compliant with his medication. CD4 count is around 800. Viral load undetectable. He presents with chief complaint of fever, chills, congestion and now cough and shortness of breath. Onset for last 3 to 4 days. He called his doctor initially and was told that he probably has COVID-19 infection. He was told to isolate himself and push fluids and treat symptomatically. Told to go the hospital if he started getting short of breath. This occurred tonight. He said he is been coughing more. Worse with exertion. Worse with inspiration. Better with rest. No history of asthma. Denies any other complaint. Has generalized myalgia. Fever is low-grade. Allergies: Coded Allergies: ERYTHROMYCIN BASE (Verified Allergy, Unknown, 05/10/15) COVID-19 Screening Contact w/high risk pt: No Recent Travel to affected area: No Experienced COVID-19 symptoms?: No COVID-19 symptoms experienced: Shortness of Breath, Cough Patient History Past Medical History: see triage record, old chart reviewed, HIV Past Surgical History: none Pertinent Family History: none Social History: Denies: smoking Immunizations: other Reviewed Nursing Documentation: PMH: Agreed; PSxH: Agreed Nursing Documentation-PMH Hx Cardiac Problems: Yes Hx Hypertension: Yes Hx Diabetes: Yes Hx Cancer: Yes Hx Gastrointestinal Problems: No Hx Neurological Problems: No Review of Systems Constitutional: Reports: chills, sweats, fever Eye: Denies: eye pain, blurred vision ENT: Reports: nose congestion; Denies: ear pain, throat swelling Respiratory: Reports: cough, shortness of breath Cardiovascular: Denies: chest pain, palpitations Gastrointestinal: Denies: abdominal pain, diarrhea, nausea, vomiting Musculoskeletal: Denies: back pain, joint pain Skin: Denies: rash Neurological: Denies: headache, numbness Endocrine: Denies: increased thirst, increased urine Hematologic/Lymphatic: Denies: easy bruising All Other Systems: negative except mentioned in HPI Physical Exam Vital Signs Date Time Temp Pulse Resp B/P (MAP) Pulse Ox O2 Delivery O2 Flow Rate FiO2 09/21/19 22:51 99.9 86 145/95 (112) 97 Room Air Vitals with low-grade fever Sp02 EP Interpretation: reviewed, normal General Appearance: well appearing, no apparent distress, alert Head: normocephalic, atraumatic Eyes: bilateral eye PERRL, bilateral eye EOMI ENT: hearing grossly normal, normal pharynx Neck: full range of motion, supple, no meningismus Respiratory: chest non-tender, lungs clear, normal breath sounds, other - Coughing with inspiration Cardiovascular #1: regular rate, rhythm, no murmur Gastrointestinal: normal bowel sounds, non tender, no mass, no organomegaly, no bruit, non-distended Musculoskeletal: back normal, normal range of motion, gait/station normal Psychiatric: mood/affect normal Medical Decision Making Diagnostic Impression: Primary Impression: Suspected COVID-19 virus infection Additional Impression: Community acquired pneumonia Qualified Codes: J18.9 - Pneumonia, unspecified organism ER Course Patient presents with cough congestion and fever. Symptom suspicious for COVID- 19 infection. X-ray showed bilateral infiltrate. CT scan showed multifocal prominent peripheral scattered groundglass opacities involving all lobes. This is very concerning for coronavirus infection. I sent a specimen for confirmation. Antibiotics ordered here. IV fluid given. Will admit for IV hydration and antibiotics. I contacted Dr. Becerril for admission. EKG Diagnostic Results Rate: normal Rhythm: NSR ASA given to the pt in ED: Yes Rhythm Strip Diag. Results EP Interpretation: yes Rate: 77 Rhythm: NSR, no PVC's, no ectopy Chest X-Ray Diagnostic Results Chest X-Ray Diagnostic Results : Chest X-Ray Ordered: Yes # of Views/Limited/Complete: 1 View Indication: Shortness of Breath EP Interpretation: Yes Interpretation: no effusion, no pneumothorax, other - Bilateral infiltrates , mostly left side Impression: Other - b/l infiltrates Electronically Signed by: Juan Gonzalez MD CT/MRI/US Diagnostic Results CT/MRI/US Diagnostic Results : Imaging Test Ordered: CT chest Impression Read by radiologist. Multifocal scattered groundglass opacity involving all lobes. Last Vital Signs Date Time Temp Pulse Resp B/P (MAP) Pulse Ox O2 Delivery O2 Flow Rate FiO2 09/21/19 22:51 99.9 86 145/95 (112) 97 Room Air Status: improved Disposition: ADMITTED INPATIENT Condition: Serious Juan Gonzalez MD Sep 21, 2019 23:13
[2019-09-21] MEDS ORDERED: Acetaminophen 500mg (ES) tab ORAL ONE (23:15)
[2019-09-21] MEDS ORDERED: Albuterol 90mcg Inhaler 8gm INH ONE (23:15)
[2019-09-21] MEDS ORDERED: Solu-MEDROL 125mg Inj IVP ONE (23:15)
[2019-09-21 23:30] VITALS: BP 145/95
--- NOTE | 2019-09-21 23:30 | NUR ---
ED Nurse Note: IV line established, blood drawn and sent to lab.
--- NOTE | 2019-09-21 23:43 | Diagnostic Imaging Report ---
EXAM: XR Chest, 1 View CLINICAL HISTORY: SOB TECHNIQUE: Frontal view of the chest. COMPARISON: 06/03/2019 FINDINGS: Lungs: Bilateral lower lobe consolidative opacities, worse on the left. Pleural space: Possible tiny left pleural effusion. No pneumothorax. Heart: Unremarkable. No cardiomegaly. Mediastinum: Unremarkable. Bones/joints: Unremarkable. Other findings: If there is further concern, consider additional imaging. IMPRESSION: 1. Bilateral lower lobe consolidative opacities, worse on the left. 2. Possible tiny left pleural effusion. 3. If there is further concern, consider additional imaging.
[2019-09-21 23:55] LABS: BASOPHILS % (AUTO) 1.6 % (0.0-2.0); EOSINOPHILS % (AUTO) 0.1 % (0.0-3.0); HEMATOCRIT 39.1 % (42.0-52.0); HEMOGLOBIN 14.2 G/DL (14.2-18.0); LYMPHOCYTES % (AUTO) 43.3 % (20.0-45.0); MEAN CORPUSCULAR VOLUME 85 FL (80-99); MONOCYTES % (AUTO) 8.7 % (1.0-10.0); NEUTROPHILS % (AUTO) 46.3 % (45.0-75.0); PLATELET COUNT 131 K/UL (150-450); RED BLOOD COUNT 4.62 M/UL (4.70-6.10); RED CELL DISTRIBUTION WIDTH 12.5 % (11.6-14.8); WHITE BLOOD COUNT 4.8 K/UL (4.8-10.8)
[2019-09-22] VITALS (17 sets, daily range): BP systolic 140–185; BP diastolic 53–103
[2019-09-22] MEDS ORDERED: cefTRIAXone 1 GM in NS 55 ML IVPB ONE ×2
[2019-09-22] MEDS ORDERED: Azithromycin 500 MG in NS 275 ML IV ONE ×2
--- NOTE | 2019-09-22 | NUR ---
HAND-OFF: Report given to Lebron Zuleta RN and pt placed in trauma room.
--- NOTE | 2019-09-22 | NUR ---
ED Nurse Note: RECEIVED PATIENT FROM MAYCOL PERALTA. PATIENT MOVED FROM [facility] TO TRAUMA. EVS PAGED TO [facility] PREVIOUS ROOM. PATIENT TRANSFERED TO [facility], [facility] VIA [facility]NEY; PT WEARING MASK. CHANGED INTO GOWN; ATTACHED TO MONITOR; SAFETY MEASURES MET. COVID19 PRECAUTIONS OBSERVED. DISCUSSED PLAN OF CARE WITH PATIENT; PATIENT AWARE OF PENDING ADMISSION AND COVID 19 RULE OUT PRECAUTIONS.
[2019-09-22 00:11] LABS: ANION GAP 9 mmol/L (5-15); BLOOD UREA NITROGEN 16 mg/dL (7-18); CALCIUM 9.1 MG/DL (8.5-10.1); CARBON DIOXIDE 25 MMOL/L (21-32); CHLORIDE 99 MMOL/L (98-107); CREATININE 1.5 MG/DL (0.55-1.30); POTASSIUM 4.3 MMOL/L (3.5-5.1); SODIUM 133 MMOL/L (136-145)
--- NOTE | 2019-09-22 00:15 | NUR ---
ED Nurse Note: SECOND IV ACCESS ESTABLISHED. ADMINISTERED FLUIDS PRESCRIBED. COVID19 SWAB, VRE CRE MRSA SWABS COLLECTED; SENT DOWN TO LAB. BELONGINGS LIST COMPLETED WITH PATIENT. PATIENT DOWN TO CT WITH DENTAL TREATMENT COORDINATOR VIA GURNEY; PT WEARING MASK.
--- NOTE | 2019-09-22 01:19 | Diagnostic Imaging Report ---
EXAM: CT Chest Without Intravenous Contrast CLINICAL HISTORY: SOB TECHNIQUE: Axial computed tomography images of the chest without intravenous contrast. CTDI is 8.3 mGy and DLP is 288mGy-cm. One or more of the following dose reduction techniques were used: automated exposure control, adjustment of the mA and/or kV according to patient size, use of iterative reconstruction technique. COMPARISON: Same day chest radiographs FINDINGS: Lungs: Multifocal prominent peripheral scattered groundglass attenuation opacities involving all lobes likely represent an infectious or inflammatory multifocal process. Correlate with presentation. Pleural space: Unremarkable. No pneumothorax. No significant effusion. Heart: Unremarkable. No cardiomegaly. No significant pericardial effusion. Mediastinum: Small hiatal hernia. Bones/joints: Mild degenerative spine findings. No acute fracture. No dislocation. Soft tissues: Unremarkable. Vasculature: Unremarkable. No thoracic aortic aneurysm. Lymph nodes: Massive, bulky right axillary and subpectoral lymphadenopathy the with right axillary node measuring up to 3.3 x 2.2 cm and subpectoral node measuring up to 5.9 x 1.5 cm; etiology unclear. No other lymphadenopathy seen. IMPRESSION: 1. Multifocal prominent peripheral scattered groundglass attenuation opacities involving all lobes likely represent an infectious or inflammatory multifocal process. Correlate with presentation. 2. Recommend image guided percutaneous biopsy of right axillary and/or subpectoral lymphadenopathy, neoplasm not excluded. 3. Small hiatal hernia. 4. Recommend follow-up unenhanced CT chest in 3 months to document resolution.
--- NOTE | 2019-09-22 01:30 | NUR ---
ED Nurse Note: patient back from ct. reattached to monitor. pt presents with no acute distress. covid 19 precautions observed.
[2019-09-22] MEDS ORDERED: Albuterol 90mcg Inhaler 8gm INH PRN (01:45)
--- NOTE | 2019-09-22 01:45 | NUR ---
ED Nurse Note: PATIENT SOILED SELF WITH BOWELMOVEMENT. CHANGED LINENS AND PROVIDED PATIENT WITH NEW GOWN. PATIENT BACK COMFORTABLE IN BED WITH NO ACUTE DISTRESS. AWARE OF PENDING ADMISSION.
--- NOTE | 2019-09-22 02:05 | NUR ---
TRANSFER TO FLOOR: Patient transferred to [id number] as ordered, per SIDNEY HUTSON. Report given to GREGORY SEVERINO. PATIENT STABLE FOR TRANSFER. PATIENT TRANSFERRED TO UNIT WITH RN AND CATHERINE. PATIENT MASK IN PLACE AND PT COVERED WITH EMERGENCY BLANKET; COVID PRECAUTIONS OBSERVED. PATIENT SENT WITH BELONGINGS LIST AND ADMISSION PACKET.
--- NOTE | 2019-09-22 02:15 | NUR ---
NURSE NOTES: Admitted from ED this pleasant 64 yo male with pneumonia, r/o COVID-19. No distress, denies pains, denies SOB. RINCON's; AAOx4. Ambulated from gurney to bed. COVID precautions in place. Currently temp 99 orally c/o productive cough. HL on right hand and left AC intact. Skin intact. Pt's belongings inventoried, pt prefers to keep his cell phone at bedside. HIV meds in the bag. Good historian, claims he had flu like symptoms for the last 3 days with SOB. Currently he is on room air O2 sats 98-99% denies SOB at this time. Plan of care explained; called Dr gann for orders.Placed on droplet precautions.
--- NOTE | 2019-09-22 06:00 | NUR ---
NURSE NOTES: Bedside commode placed in the room, pt had 1 small amt of BM. Requires minimal assistance. Denies SOB, denies CP. Still coughing productively. Container for sputum given for C&S, still unable to give good sample. Voiding per urinal
--- NOTE | 2019-09-22 07:23 | NUR ---
HAND-OFF: Report given to Bettina SEVERINO.
[2019-09-22] MEDS: Albuterol 90mcg Inhaler 8gm INH SCH ×3 (07:55→19:00)
--- NOTE | 2019-09-22 08:00 | NUR ---
NURSE NOTES: Received change of shift report from Brenden SEVERINO. Pt is awake, alert, oriented x4, on COVID-rule out isolation. Pt is on room air at 99% O2Sat with diminished lung sounds. NSR on library monitor, HR 80. Temp 98.2F axillary. Pt has frequent pronounced coughs, reports intermittent "chills", denies any pain at this time. NS infusing at 100ml/hour at peripheral IV access right hand #20G. Second peripheral IV access is noted on right FA, #20G. Abdomen is large, round, soft, nontender to touch with hyperactive bowel sounds. 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 Skin is intact. HOB at 30 degrees, bed locked, in lowest position, three side rails up, and call light is placed within easy reach. Will continue to monitor pt and follow plan of care per MD orders and protocol.
[2019-09-22] MEDS: Heparin 5000 units/ml inj SUBQ SCH ×2 (09:00→21:00)
[2019-09-22] MEDS: Lisinopril 20mg tab ORAL SCH (09:40)
--- NOTE | 2019-09-22 12:00 | NUR ---
NURSE NOTES: Pt remains afebrile, Temp 98.8F axillary, however reports intermittent "chills". NSR on logistic specialist, remains on room air at 99% O2Sat. No repots of pain, however reports "feeling sick and very tired". NS is maintained at 100ml/hour. VS remain stable. Pt had BM x1 using bedside commode.
--- NOTE | 2019-09-22 16:00 | NUR ---
NURSE NOTES: Pt was seen by Dr Novoa, Dr Balbuena and this AM by Dr Becerril. Per Dr. Becerril, ok to place pt on 1:1 care. Pt is awake, alert, reports "feeling very tired and sick". VS remain stable. Pt used bedside commode for BM x1. NS continues to infuse at 100ml/hour.
--- NOTE | 2019-09-22 16:30 | Consultation ---
DATE OF CONSULTATION: 09/22/2019 PULMONARY CONSULTATION CONSULTING PHYSICIAN: Saulo Rasmussen M.D. HISTORY OF PRESENT ILLNESS: This is a 64-year-old male with a history of HIV positivity with an elevated/normal CD4 count and undetectable viral load. The patient has traveled recently to [place]. The patient reported significant cough and shortness of breath for the last 4 days. He self-isolated himself. However, because of further cough and shortness of breath, he came to the hospital. He was seen and worked up. His CT chest showed bilateral ground-glass densities. He is not hypoxic. He has a significant cough. Past history, HIV positivity . There is a significant history of travel recently. REVIEW OF SYSTEMS: Denies any headaches, hematemesis, melena, hematochezia, night sweats, or weight loss. PAST HISTORY: As discussed above. SURGERIES: None. PHYSICAL EXAMINATION: GENERAL: Reveals a 64-year-old male. HEENT: Unremarkable. LUNGS: Clear breath sounds bilaterally. ABDOMEN: Soft. EXTREMITIES: There is no edema. VITAL SIGNS: Blood pressure 150/77, heart rate 84, respiratory rate , he is afebrile, O2 saturation 99% on room air. LABORATORY TESTING: Unremarkable with normal white count and normal chemistry except for sodium of 133, creatinine 1.5. IMAGING STUDIES: The patient underwent a chest CT, which shows a multifocal bilateral ground-glass attenuation. There is also evidence of massive right axillary and subpectoral lymphadenopathy. IMPRESSION: 1. Suspect infectious process, rule out COVID-19. 2. HIV. DISCUSSION: The patient has significant adenopathy. Recommend Hematology consultation. We will discuss with Dr. Becerril and Dr. Thakur. 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 Agree with isolation and empiric antibiotics. Saulo Rasmussen M.D. DR: CHASIDY JOB#: [id number] CC:
--- NOTE | 2019-09-22 16:39 | Infectious Diseases Prog Note ---
Assessment/Plan Assessment/Plan Full consult dictated: A) 1) sob, fevers, cough, hiv, ? cap, rule out covid-19 infection 2) hiv - t-cell > 500 3) pmh hx noted P) 1) ceftriaxone and azithromycin 2) monitory for hypoxia 3) f/u on cultures and imagint 4) hiv tx with previous anti-virals 5) thank you Subjective Allergies: Coded Allergies: ERYTHROMYCIN BASE (Verified Allergy, Unknown, 05/10/15) Objective Vital Signs Last 24 Hour Vital Signs Date Time Temp Pulse Resp B/P (MAP) Pulse Ox O2 Delivery O2 Flow Rate FiO2 09/22/19 16:00 Room Air 09/22/19 13:00 80 18 147/75 (99) 99 09/22/19 12:00 Room Air 09/22/19 12:00 98.8 77 17 145/92 (109) 100 09/22/19 12:00 78 09/22/19 11:00 81 13 153/77 (102) 99 09/22/19 10:00 82 18 154/98 (116) 99 09/22/19 09:40 99 175/103 09/22/19 09:40 175/103 09/22/19 09:00 88 20 154/94 (114) 98 09/22/19 08:00 98.2 90 18 185/101 (129) 100 09/22/19 08:00 Room Air 09/22/19 08:00 79 09/22/19 06:00 99 22 175/103 (127) 97 09/22/19 05:00 79 26 161/90 (113) 98 09/22/19 04:00 84 23 159/87 (111) 99 09/22/19 04:00 Room Air 09/22/19 04:00 85 09/22/19 03:00 99.0 81 16 152/82 (105) 99 09/22/19 02:46 Room Air 09/22/19 02:05 98.5 83 16 148/79 99 Room Air 09/22/19 01:45 98.5 83 16 148/79 99 Room Air 09/22/19 00:49 98.5 85 14 151/88 98 Room Air 09/21/19 23:52 98.5 09/21/19 23:30 99.9 86 16 145/95 97 Room Air 09/21/19 23:30 86 16 Room Air 09/21/19 22:51 99.9 86 145/95 (112) 97 Room Air Height (Feet): 6 Weight (Pounds): 201 Microbiology Date/Time Source Procedure Growth Status 09/21/19 23:30 Nasal Nares - Final Complete 09/21/19 23:30 Nasal Nares - Final Complete Laboratory Tests Test 09/21/19 23:30 White Blood Count 4.8 K/UL (4.8-10.8) Red Blood Count 4.62 M/UL (4.70-6.10) L Hemoglobin 14.2 G/DL (14.2-18.0) Hematocrit 39.1 % (42.0-52.0) L Mean Corpuscular Volume 85 FL (80-99) Mean Corpuscular Hemoglobin 30.8 PG (27.0-31.0) Mean Corpuscular Hemoglobin Concent 36.4 G/DL (32.0-36.0) H Red Cell Distribution Width 12.5 % (11.6-14.8) Platelet Count 131 K/UL (150-450) L Mean Platelet Volume 7.7 FL (6.5-10.1) Neutrophils (%) (Auto) 46.3 % (45.0-75.0) Lymphocytes (%) (Auto) 43.3 % (20.0-45.0) Monocytes (%) (Auto) 8.7 % (1.0-10.0) Eosinophils (%) (Auto) 0.1 % (0.0-3.0) Basophils (%) (Auto) 1.6 % (0.0-2.0) Sodium Level 133 MMOL/L (136-145) L Potassium Level 4.3 MMOL/L (3.5-5.1) Chloride Level 99 MMOL/L (98-107) Carbon Dioxide Level 25 MMOL/L (21-32) Anion Gap 9 mmol/L (5-15) Blood Urea Nitrogen 16 mg/dL (7-18) Creatinine 1.5 MG/DL (0.55-1.30) H Estimat Glomerular Filtration Rate 57.3 mL/min (>60) Glucose Level 101 MG/DL (74-106) Calcium Level 9.1 MG/DL (8.5-10.1) Current Medications Medications (Trade) Dose Ordered Sig/[place] Route PRN Reason Start Time Stop Time Status Last Admin Dose Admin Acetaminophen (Tylenol) 650 mg Q4H PRN ORAL Mild Pain/Temp > 100.5 09/22/19 03:15 10/22/19 03:14 Albuterol Sulfate (Proventil MDI) 2 puff Q6HRT INH 09/22/19 07:00 12/21/19 06:59 Amlodipine Besylate (Norvasc) 10 mg DAILY ORAL 09/22/19 09:00 10/22/19 08:59 09/22/19 09:40 Atorvastatin Calcium (Lipitor) 20 mg BEDTIME ORAL 09/22/19 21:00 12/21/19 20:59 Azithromycin (Zithromax) 250 mg DAILY ORAL 09/23/19 09:00 09/26/19 09:01 Ceftriaxone Sodium 1 gm/ Dextrose 55 ml @ 110 mls/hr Q24H IVPB 09/23/19 00:00 09/30/19 00:00 Guaifenesin/ Codeine Phosphate (Robitussin with codeine) 5 ml Q6H PRN ORAL For Cough 09/22/19 14:00 10/22/19 13:59 Heparin Sodium (Porcine) (Heparin 5000 units/ml) 5,000 units EVERY 12 HOURS SUBQ 09/22/19 09:00 11/06/19 08:59 Hydroxychloroquine Sulfate (Plaquenil) 200 mg BID ORAL 09/23/19 18:00 09/27/19 09:01 Hydroxychloroquine Sulfate (Plaquenil) 400 mg TWICE A DAY ORAL 09/22/19 18:00 09/23/19 09:01 Lisinopril (PriniviL) 20 mg DAILY ORAL 09/22/19 09:00 10/22/19 08:59 09/22/19 09:40 Ondansetron HCl (Zofran) 4 mg Q6H PRN IVP Nausea & Vomiting 09/22/19 03:15 10/22/19 03:14 Sodium Chloride 1,000 ml @ 100 mls/hr Q10H IV 09/22/19 03:15 10/22/19 03:14 09/22/19 12:37 Christa Novoa MD Sep 22, 2019 16:39
--- NOTE | 2019-09-22 17:45 | History and Physical Report ---
DATE OF ADMISSION: 09/22/2019 CHIEF COMPLAINT: Fevers, pneumonia, possible coronavirus infection. HISTORY OF PRESENT ILLNESS: The patient is a 64-year-old male, well known to me. He has a history of HIV, hypertension, hypertensive heart disease, prior nephrectomy and BPH, who presents with complaints of fevers, cough, and congestion for the last week. The patient states that multiple other people in his "neighborhood" had coronavirus infection. He has persistent fevers, chills, and cough, has not improved. He presented to the emergency room for further evaluation. On evaluation there, the patient was markedly hypertensive. He had a low-grade fever of 99.9. A CT scan of the chest showed bulky lymphadenopathy, scattered ground-glass opacities. The patient is now admitted for further evaluation and care. PAST MEDICAL HISTORY: As above. PAST SURGICAL HISTORY: Includes nephrectomy. CURRENT MEDICATIONS: Reconciled and reviewed. ALLERGIES: Include erythromycin. FAMILY HISTORY: Noncontributory. SOCIAL HISTORY: Negative for tobacco, ethanol, or drugs. REVIEW OF SYSTEMS: GENERAL: Positive for fevers and chills, but no night sweats. HEENT: No headaches or visual changes. CARDIOPULMONARY: No chest pain. Positive shortness of breath and cough. GASTROINTESTINAL: No nausea, vomiting. GENITOURINARY: No urgency or frequency. MUSCULOSKELETAL: No joint pain or swelling. NEUROLOGIC: History of seizures. PHYSICAL EXAMINATION: VITAL SIGNS: Temperature 98.5, pulse 83, respirations 16, blood pressure 140/79. GENERAL: The patient is well developed, no apparent distress. HEART: Regular rate and rhythm. LUNGS: Significant for scattered rhonchi. ABDOMEN: Soft, nontender, nondistended. EXTREMITIES: Without clubbing, cyanosis, or edema. LABORATORY DATA: White count 4, hemoglobin 14, hematocrit 39, platelets of 131,000. Sodium 133, potassium is 4.3, creatinine is 1.5. ASSESSMENT: This is a pleasant male with history of HIV, hypertension, BPH, nephrectomy, admitted with complaints of shortness of breath, cough, and congestion. PLAN: 1. Rule out COVID-19 infection. 2. Pulmonary evaluation regarding CT findings. 3. He is ruled out for COVID-19. 4. May consider lung biopsy . 5. Cardiology, Infectious Disease, pulmonary consultations have been obtained. Angel Becerril M.D. DR: ROSITA JOB#: [id number] CC:
--- NOTE | 2019-09-22 18:00 | NUR ---
NURSE NOTES: Temp 99.2F axillary. NSR on air sampling and monitoring. Pt is having dinner now. Denies any pain, only reports "feeling sick/tired". NS infusing at 100ml/hour. Pt urinated using urinal, output of clear/meryl urine. Pt had BM x1 using bedside commode. VS remain stable.
--- NOTE | 2019-09-22 19:27 | NUR ---
HAND-OFF: Report given to Jeanne SEVERINO. Endorsed plan of care.
--- NOTE | 2019-09-22 19:28 | NUR ---
NURSE NOTES: Endorsement received from MAYCOL Dunbar. Patient awake and alert. No report of pain. On room air, no shortness of breath. 100% saturation on the monitor. With right hand g20 and left AC g20, receiving NS 100ml/hr. Call light within reach. Bed locked and in low position. Will continue to monitor.
--- NOTE | 2019-09-22 19:30 | Consultation ---
DATE OF CONSULTATION: 09/22/2019 INFECTIOUS DISEASE CONSULTATION CONSULTING PHYSICIAN: Christa Novoa M.D. ATTENDING PHYSICIAN: Angel Becerril M.D. REFERRING PHYSICIAN: Александр Thakur M.D. REASON FOR CONSULTATION: Community-acquired pneumonia, rule out COVID-19 pneumonia and infection. CHIEF COMPLAINT: The patient's chief complaint coming in the hospital is pneumonia, rule out COVID-19 versus community-acquired pneumonia. HISTORY OF PRESENT ILLNESS: This is a very pleasant 64-year-old male, who has history of HIV. Discussed with Dr. Thakur, I reviewed records. He had a previous admission where his T-cell count was 790 and his viral load was 19,020. The patient now presents to [facility] with the following, the patient presents with fevers, shortness of breath, and cough. He has had this for at least several days. He said since Monday, it sounds like. The patient had a chest x-ray and CT scan in the ER. It looks like his chest x-ray shows bilateral lower lobe consolidations and his chest CT showed multifocal prominent peripheral scattered ground-glass opacities, likely infectious process or multifocal process. Infectious Disease consultation is requested for antibiotic management. The patient currently is on Rocephin and azithromycin, has been started on hydroxychloroquine 400 mg p.o. twice a day for #day 1 and then subsequently 200 mg p.o. twice a day. Case was discussed with pharmacy. Case was also discussed with Dr. Александр Thakur. I have ordered serology on the patient. The patient currently is in the intensive care unit in isolation for COVID-19 and COVID-19 testing has been done. The patient looks like he is on Triumeq as an outpatient setting for his antiviral therapy. REVIEW OF SYSTEMS: GENERAL: Main issue coming in, he did have low-grade fevers. He has been having fevers. No significant chills currently. HEAD AND NECK: No headache or neck stiffness, thrush or dysphagia. CARDIAC: No chest pain. PULMONARY: He does have cough and congestion, initially dry cough and now sputum production. No hemoptysis or significant secretions, but he does have cough and productive sputum. GASTROINTESTINAL: No nausea, vomiting, or diarrhea. No abdominal pain. GENITOURINARY: No dysuria or frequency. SKIN: No rash. No pruritus. EXTREMITIES: Lower extremity, no pain. NEUROLOGIC: Denies seizures. Denies fatigue. No focal weakness. No significant myalgias mentioned. PAST MEDICAL HISTORY: The patient has a past medical history of HIV. His most recent T-cell count was 790. I believe his viral load was around 19,000 on last admission. He is on Triumeq for the HIV. Other past medical history includes the following; the patient has past medical history of hypertension, diabetes and cancer in addition to HIV. He also has cardiac disease, it looks like. I am not clear what type. ALLERGIES: Include erythromycin base. No other antibiotic allergies. SOCIAL HISTORY: Negative for smoking, alcohol, or drug abuse. FAMILY HISTORY: Noncontributory and negative for tuberculosis or cancer. MEDICATIONS: Upon reviewing the MAR, the patient is on following medications. He is on hydroxychloroquine or Plaquenil, azithromycin, Rocephin, atorvastatin, cough syrup, heparin, Rocephin, azithromycin, hydroxychloroquine, lisinopril, amlodipine, albuterol, Zofran, and acetaminophen. He has been on methylprednisolone also. Outside medications noted and reconciliated. With regards to the past medical history, it is unclear if he has diabetes. I believe, he is on diabetic medications. He also could have hyperlipidemia in the past medical history. PHYSICAL EXAMINATION: VITAL SIGNS: Temperature 98.8, pulse rate 77, respiratory rate 17, and blood pressure 145/92. Saturations 100% on room air. His T-max 99.9. GENERAL: The patient is alert and responsive. He is oriented x3. He is in the ICU. He is wearing a mask for COVID-19 protection. HEAD AND NECK: Oral exam, no thrush. He is normocephalic. Neck is supple. No JVD. Eye exam, no icterus. HEART: Regular. No gallop or murmur. LUNGS: Bilateral rhonchi and possible rales. ABDOMEN: Soft. Positive bowel sounds. Nontender. SKIN: No rash. MUSCULOSKELETAL: No effusion. Legs have cellulitis. PERIPHERAL VASCULAR: No cyanosis or gangrene. GENITOURINARY: No Carrera. No CVA tenderness. LINE SITES: Without phlebitis. NEUROLOGIC: Intact. Nonfocal. Alert and oriented. LABORATORY DATA: Creatinine is 1.5. White count 4.8, hemoglobin 14.2. Serology and cultures are pending. IMAGING STUDIES: Chest x-ray with bilateral consolidative changes in the lower lobes, worse on the left. CT scan of the chest showed multifocal prominent peripheral scattered ground-glass attenuation opacities in all lobes consistent with infectious etiology. ASSESSMENT AND PLAN: 1. The patient has pneumonia likely consistent with either community-acquired pneumonia or other viral pneumonitis, but certainly could have COVID-19 infection and pneumonia. The patient is immunocompromised with history of HIV and radiographic changes certainly could be consistent with COVID-19 infection and community-acquired pneumonia. In addition, he has respiratory symptoms. At this time, I agree with Rocephin and azithromycin to cover community-acquired pneumonia. Also, I agree with hydroxychloroquine since the patient is ICU status and is short of breath it is indicated at this time. Continue azithromycin, Rocephin, and hydroxychloroquine for community-acquired pneumonia and possible COVID-19 infection and pneumonia. Await COVID-19 testing. Check Legionella, mycoplasma and followup labs and chest x-ray. I would try to avoid induction of sputum since this could potentially be aerosol generated procedure. If the sputum is obtained, it should be from the patient himself. Continue antibiotics, continue pulmonary care, and monitor the patient clinically. 2. Hypertension. 3. Possible dyslipidemia. 4. Documented history of diabetes in the chart, however, not clear if he has this. 5. Blood pressure treatment per primary care team. 6. HIV. T-cell count most recent was 790 and viral load around 19,000. He is not a risk for opportunistic infections, however, we will check Cryptococcus. Continue Triumeq for anti-retroviral therapy if the patient has his own. 7. Elevated creatinine. 8. Allergies to erythromycin base. 9. Social history is negative. 10. Family history is noncontributory. 11. MAR is noted. 12. Case discussed with RN. 13. Case discussed with Dr. Thakur. 14. Case discussed with nursing staff in the ICU. 15. Continue treatment per primary consultants. 16. Orders were noted and entered. Thank you, I will follow. Christa Novoa M.D. DR: MUESH JOB#: [id number] CC: BERTRAM
[2019-09-22] MEDS: Atorvastatin 20mg tab ORAL SCH (20:15)
[2019-09-22] MEDS ORDERED: Azithromycin 250mg tab ORAL SCH (21:00)
--- NOTE | 2019-09-22 22:30 | Consultation ---
DATE OF CONSULTATION: 09/22/2019 INFECTIOUS DISEASE CONSULTATION This consult is for coverage of Dr. Salazar. CONSULTING PHYSICIAN: Myron Balbuena M.D. PRIMARY ATTENDING PHYSICIAN: Angel Becerril M.D. REASON FOR CONSULTATION: Multifocal pneumonia. HISTORY OF PRESENT ILLNESS: This is a 64-year-old male admitted today from home complaining of coughing, fever, chills, weakness, and diarrhea. Symptoms started about one week ago. In the past four days, it progressed. The patient also has history of HIV. PAST MEDICAL HISTORY: HIV for 23 years. Last CD4 count in May 2019 was 719. HIV viral load was around 19,020. He has history of hypertension, has history of Wilms tumor, had nephrectomy, BPH, hyperlipidemia, and hypertension. ALLERGIES: Allergic to erythromycin. MEDICATIONS: Getting ceftriaxone, azithromycin, atorvastatin, heparin, lisinopril, amlodipine, albuterol, Zofran, and Tylenol. SOCIAL HISTORY: Single. Denies alcohol abuse or smoking. He has social drinking. He lives between [facility] and [facility]. He is in [facility] since May 2019. REVIEW OF SYSTEMS: Subjective fever, weakness, decrease in appetite, coughing that is slightly productive, and diarrhea. PHYSICAL EXAMINATION: VITAL SIGNS: Temperature 98.2, T-max is 99.8, blood pressure 153/77, and pulse 81. GENERAL APPEARANCE: Seems to be well developed, in no acute distress. HEAD AND NECK: Lehr conjunctivae. He has whitish tongue. HEART: Normal rate. LUNGS: Clear. ABDOMEN: Soft, nontender. EXTREMITIES: No edema. NEUROLOGIC: He is awake, alert, and oriented x3. LABORATORY AND DIAGNOSTIC DATA: WBC 4.8, hemoglobin 14.2, hematocrit 39.1, and platelet 131,000. Sodium 133, potassium 4.3, chloride 99, bicarbonate 25, BUN 16, and creatinine 1.5. Glucose was within normal limit. The patient had a chest x-ray and showed pneumonia. CT scan also showed multifocal scattered peripheral opacity likely inflammation and infection. IMPRESSION: 1. Multifocal pneumonia, likely viral. We will try to rule out COVID-19. 2. HIV. The patient gets Triameq, but does not seem it is well controlled and still viral load is positive. 3. He has diarrhea. 4. BPH. 5. Hyperlipidemia. 6. History of Wilms tumor. 7. Chronic kidney disease. RECOMMENDATIONS: Continue ceftriaxone. Hold Zithromax. We will start the patient on hydroxychloroquine. We will follow up COVID-19 test. At the end of my exam, I thank Dr. Becerril for involving me in the care of this patient. Myron Balbuena M.D. DR: GARY JOB#: [id number] CC: BERTRAM
[2019-09-23] VITALS (25 sets, daily range): BP systolic 114–177; BP diastolic 53–119
--- NOTE | 2019-09-23 | NUR ---
NURSE NOTES: Patient awake, having episodes of coughing. Tachypneic at this time due to bouts of cough, As per him he's a little short of breath. Saturation is 99% on room air. 2 LPM nasal cannula started at this time. PRN Robitussin given. Patient febrile, 102.9 also having chills. PRN tylenol given.
[2019-09-23] MEDS: cefTRIAXone 1 GM in D5W 55 ML IVPB SCH (00:08)
[2019-09-23] MEDS: guaiFENesin w/Codeine 5ml Liq ud ORAL PRN ×3 (00:25→20:28)
[2019-09-23] MEDS: Albuterol 90mcg Inhaler 8gm INH SCH ×5 (01:00→19:32)
--- NOTE | 2019-09-23 04:30 | NUR ---
NURSE NOTES: Patient on room air, saturation 99%. Still febrile at 102.9, still with chills. PRN tylenol given. Patient refused sponge bath.
[2019-09-23 05:59] LABS: BASOPHILS % (AUTO) 0.8 % (0.0-2.0); HEMATOCRIT 37.6 % (42.0-52.0); HEMOGLOBIN 13.4 G/DL (14.2-18.0); LYMPHOCYTES % (AUTO) 35.1 % (20.0-45.0); MEAN CORPUSCULAR VOLUME 86 FL (80-99); MONOCYTES % (AUTO) 4.9 % (1.0-10.0); NEUTROPHILS % (AUTO) 59.2 % (45.0-75.0); PLATELET COUNT 108 K/UL (150-450); RED BLOOD COUNT 4.37 M/UL (4.70-6.10); RED CELL DISTRIBUTION WIDTH 12.9 % (11.6-14.8); WHITE BLOOD COUNT 5.4 K/UL (4.8-10.8)
[2019-09-23 06:22] LABS: ALANINE AMINOTRANSFERASE 39 U/L (12-78); ALBUMIN 3.7 G/DL (3.4-5.0); ALBUMIN/GLOBULIN RATIO 0.8 (1.0-2.7); ALKALINE PHOSPHATASE 66 U/L (46-116); ANION GAP 14 mmol/L (5-15); ASPARTATE AMINO TRANSFERASE 55 U/L (15-37); BILIRUBIN,TOTAL 0.3 MG/DL (0.2-1.0); BLOOD UREA NITROGEN 17 mg/dL (7-18); CALCIUM 9.2 MG/DL (8.5-10.1); CARBON DIOXIDE 22 MMOL/L (21-32); CHLORIDE 102 MMOL/L (98-107); CREATININE 1.4 MG/DL (0.55-1.30); POTASSIUM 4.1 MMOL/L (3.5-5.1); SODIUM 137 MMOL/L (136-145)
--- NOTE | 2019-09-23 07:08 | NUR ---
NURSE NOTES: Patient seen and examined by Dr. Becerril, informed him of Tmax of 102.9 overnight and diarrhea. No new order received at this time
--- NOTE | 2019-09-23 07:26 | NUR ---
HAND-OFF: Report given to MAYCOL Adrian.
--- NOTE | 2019-09-23 07:27 | NUR ---
NURSE NOTES: Received report from MAYCOL Angel. Patient is alert and oriented x4. On room air. Still having dry coughing. SR on the monitor. Right Hand 20G IV and Left AC 20G intact and clean. Running NS 100mlhr. Offered breakfast. Kept dry, clean and comfortable. Call light placed in easy reach. Will continue plan of care.
--- NOTE | 2019-09-23 07:58 | General Progress Note ---
Assessment/Plan Problem List: (1) Suspected COVID-19 virus infection ICD Codes: R68.89 - Other general symptoms and signs SNOMED: 566035220 (2) HIV disease ICD Codes: B20 - Human immunodeficiency virus [HIV] disease SNOMED: 02452473 (3) Bronchitis ICD Codes: J40 - Bronchitis, not specified as acute or chronic SNOMED: 17273587 Status: stable Assessment/Plan: covid rx per ID resp care o2 pain rx await covid 19 pcr results Subjective ROS Limited/Unobtainable: No Constitutional: Reports: malaise, weakness HEENT: Reports: no symptoms Cardiovascular: Reports: no symptoms Respiratory: Reports: cough Gastrointestinal/Abdominal: Reports: no symptoms Genitourinary: Reports: no symptoms Neurologic/Psychiatric: Reports: no symptoms Endocrine: Reports: no symptoms Hematologic/Lymphatic: Reports: no symptoms Allergies: Coded Allergies: ERYTHROMYCIN BASE (Verified Allergy, Unknown, 05/10/15) All Systems: reviewed and negative except above Subjective no events. still with fevers. feels the same. Covid 19 not back yet- d/w micro. on covid rx Objective Last 24 Hour Vital Signs Date Time Temp Pulse Resp B/P (MAP) Pulse Ox O2 Delivery O2 Flow Rate FiO2 09/23/19 06:00 90 30 155/90 (111) 97 09/23/19 05:56 102.8 09/23/19 05:00 102.8 97 31 165/114 (131) 97 09/23/19 04:00 90 09/23/19 04:00 102.9 88 25 177/95 (122) 97 09/23/19 04:00 Room Air 09/23/19 03:00 111 27 174/89 (117) 98 09/23/19 02:00 102.8 85 30 136/70 (92) 98 09/23/19 01:54 89 18 99 Room Air 09/23/19 01:54 89 18 99 Room Air 09/23/19 01:00 102.8 87 28 139/70 (93) 99 09/23/19 00:00 73 09/23/19 00:00 Room Air 09/23/19 00:00 102.9 96 29 140/53 (82) 09/22/19 23:00 74 21 140/53 (82) 100 09/22/19 22:00 81 21 164/99 (120) 98 09/22/19 21:00 72 24 145/77 (99) 99 09/22/19 20:00 99.4 78 24 145/77 (99) 97 09/22/19 20:00 Room Air 09/22/19 20:00 78 09/22/19 19:00 Room Air 09/22/19 19:00 Room Air 09/22/19 17:13 Room Air 09/22/19 17:13 Room Air 09/22/19 16:00 75 09/22/19 16:00 Room Air 09/22/19 16:00 99.2 80 22 141/82 (101) 98 09/22/19 13:00 80 18 147/75 (99) 99 09/22/19 12:00 Room Air 09/22/19 12:00 98.8 77 17 145/92 (109) 100 09/22/19 12:00 78 09/22/19 11:00 81 13 153/77 (102) 99 09/22/19 10:00 82 18 154/98 (116) 99 09/22/19 09:40 99 175/103 09/22/19 09:40 175/103 09/22/19 09:00 88 20 154/94 (114) 98 09/22/19 08:00 98.2 90 18 185/101 (129) 100 09/22/19 08:00 Room Air 09/22/19 08:00 79 Intake and Output 09/22/19 09/23/19 19:00 07:00 Intake Total 1870 ml 1100 ml Output Total 700 ml 900 ml Balance 1170 ml 200 ml Intake Oral 720 ml IV Total 1150 ml 1100 ml Output Urine Total 700 ml 900 ml # Voids 8 4 # Bowel Movements 2 10 Laboratory Tests 09/23/19 00:45: Urine Legionella Antigen [Pending] 09/23/19 04:00: White Blood Count 5.4, Red Blood Count 4.37L, Hemoglobin 13.4L, Hematocrit 37.6L , Mean Corpuscular Volume 86, Mean Corpuscular Hemoglobin 30.7, Mean Corpuscular Hemoglobin Concent 35.7, Red Cell Distribution Width 12.9, Platelet Count 108L, Mean Platelet Volume 9.6, Neutrophils (%) (Auto) 59.2, Lymphocytes ( %) (Auto) 35.1, Monocytes (%) (Auto) 4.9, Eosinophils (%) (Auto) 0.0, Basophils (%) (Auto) 0.8, Sodium Level 137, Potassium Level 4.1, Chloride Level 102, Carbon Dioxide Level 22, Anion Gap 14, Blood Urea Nitrogen 17, Creatinine 1.4H, Estimat Glomerular Filtration Rate > 60, Glucose Level 98, Calcium Level 9.2, Total Bilirubin 0.3, Aspartate Amino Transf (AST/SGOT) 55H, Alanine Aminotransferase (ALT/SGPT) 39, Alkaline Phosphatase 66, Total Protein 8.2, Albumin 3.7, Globulin 4.5, Albumin/Globulin Ratio 0.8L, Cryptococcus Antigen [ Pending] Height (Feet): 6 Weight (Pounds): 201 General Appearance: WD/WN, alert Neck: supple Cardiovascular: normal rate, regular rhythm Respiratory/Chest: chest wall non-tender, lungs clear, normal breath sounds, no respiratory distress, no accessory muscle use Abdomen: normal bowel sounds, non tender, soft, no organomegaly, no mass Edema: no edema noted Arm (L), no edema noted Arm (R), no edema noted Leg (L), no edema noted Leg (R), no edema noted Pedal (L), no edema noted Pedal (R), no edema noted Generalized Neurologic: mainspring strip gauger II-XII grossly normal, alert, oriented x 3, responsive Angel Becerril MD Sep 23, 2019 07:58
[2019-09-23] MEDS: Azithromycin 250mg tab ORAL SCH (08:55)
[2019-09-23] MEDS: Lisinopril 20mg tab ORAL SCH (08:55)
[2019-09-23] MEDS: Heparin 5000 units/ml inj SUBQ SCH ×2 (09:00→21:00)
--- NOTE | 2019-09-23 09:00 | NUR ---
NURSE NOTES: All due medication given as ordered. O2 sat 97% with room air. Generalized weakness noted. Vital signs stable. Will continue to monitor.
--- NOTE | 2019-09-23 09:15 | NUR ---
CASE MANAGEMENT:REVIEW 64 YR OLD MALE FROM HOME TO ER CC: SUDDEN WEAKNESS, FEVER (99.9) AND SOB SI: BILATERAL PNEUMONIA. SUSPECTED COVID-19 99.9 86 16 145/95 97% ON RA PLT-131 NA-133 CR+1.5 IS: IV SOLUMEDROL ALBUTEROL INH 1L NS BOLUS IV ROCEPHIN IV AZITHROMYCIN CT CHEST CHEST XRAY : TO ICU
--- NOTE | 2019-09-23 11:02 | NUR ---
NURSE NOTES: Oral temp 101.9 noted. Tylenol given as ordered. Will continue to plan of care.
--- NOTE | 2019-09-23 11:23 | Pulmonology Progress Note ---
Assessment/Plan Assessment/Plan IMPRESSION: 1. Suspect infectious process, rule out COVID-19. 2. HIV. DISCUSSION: The patient has significant adenopathy. Recommend Hematology consultation. I will follow as correctional maintenance technician. Agree with isolation and empiric antibiotics. Saulo Rasmussen M.D. Subjective Interval Events: None new; seen by ID Constitutional: Reports: no symptoms HEENT: Repors: no symptoms Respiratory: Reports: no symptoms Cardiovascular: Reports: no symptoms Gastrointestinal/Abdominal: Reports: no symptoms Allergies: Coded Allergies: ERYTHROMYCIN BASE (Verified Allergy, Unknown, 05/10/15) Objective Last 24 Hour Vital Signs Date Time Temp Pulse Resp B/P (MAP) Pulse Ox O2 Delivery O2 Flow Rate FiO2 09/23/19 10:00 107 18 145/74 (97) 99 09/23/19 09:00 85 29 156/85 (108) 97 09/23/19 08:56 87 156/85 09/23/19 08:55 156/85 09/23/19 08:00 100.4 114 41 176/89 (118) 97 09/23/19 08:00 Room Air 09/23/19 07:00 88 28 157/87 (110) 98 09/23/19 07:00 Room Air 09/23/19 07:00 Room Air 09/23/19 06:00 90 30 155/90 (111) 97 09/23/19 05:56 102.8 09/23/19 05:00 102.8 97 31 165/114 (131) 97 09/23/19 04:00 90 09/23/19 04:00 102.9 88 25 177/95 (122) 97 09/23/19 04:00 Room Air 09/23/19 03:00 111 27 174/89 (117) 98 09/23/19 02:00 102.8 85 30 136/70 (92) 98 09/23/19 01:54 89 18 99 Room Air 09/23/19 01:54 89 18 99 Room Air 09/23/19 01:00 102.8 87 28 139/70 (93) 99 09/23/19 00:00 73 09/23/19 00:00 Room Air 09/23/19 00:00 102.9 96 29 140/53 (82) 09/22/19 23:00 74 21 140/53 (82) 100 09/22/19 22:00 81 21 164/99 (120) 98 09/22/19 21:00 72 24 145/77 (99) 99 09/22/19 20:00 99.4 78 24 145/77 (99) 97 09/22/19 20:00 Room Air 09/22/19 20:00 78 09/22/19 19:00 Room Air 09/22/19 19:00 Room Air 09/22/19 17:13 Room Air 09/22/19 17:13 Room Air 09/22/19 16:00 75 09/22/19 16:00 Room Air 09/22/19 16:00 99.2 80 22 141/82 (101) 98 09/22/19 13:00 80 18 147/75 (99) 99 09/22/19 12:00 Room Air 09/22/19 12:00 98.8 77 17 145/92 (109) 100 09/22/19 12:00 78 Intake and Output 09/22/19 09/23/19 19:00 07:00 Intake Total 1870 ml 1100 ml Output Total 700 ml 1400 ml Balance 1170 ml -300 ml Intake Oral 720 ml IV Total 1150 ml 1100 ml Output Urine Total 700 ml 1400 ml # Voids 8 4 # Bowel Movements 2 10 General Appearance: no acute distress HEENT: normocephalic Respiratory/Chest: chest wall non-tender, lungs clear Cardiovascular: normal peripheral pulses Abdomen: normal bowel sounds Microbiology Date/Time Source Procedure Growth Status 09/21/19 23:30 Nasal Nares - Final Complete 09/21/19 23:30 Nasal Nares - Final Complete Laboratory Tests 09/23/19 00:45: Urine Legionella Antigen [Pending] 09/23/19 04:00: White Blood Count 5.4, Red Blood Count 4.37L, Hemoglobin 13.4L, Hematocrit 37.6L , Mean Corpuscular Volume 86, Mean Corpuscular Hemoglobin 30.7, Mean Corpuscular Hemoglobin Concent 35.7, Red Cell Distribution Width 12.9, Platelet Count 108L, Mean Platelet Volume 9.6, Neutrophils (%) (Auto) 59.2, Lymphocytes ( %) (Auto) 35.1, Monocytes (%) (Auto) 4.9, Eosinophils (%) (Auto) 0.0, Basophils (%) (Auto) 0.8, Sodium Level 137, Potassium Level 4.1, Chloride Level 102, Carbon Dioxide Level 22, Anion Gap 14, Blood Urea Nitrogen 17, Creatinine 1.4H, Estimat Glomerular Filtration Rate > 60, Glucose Level 98, Calcium Level 9.2, Total Bilirubin 0.3, Aspartate Amino Transf (AST/SGOT) 55H, Alanine Aminotransferase (ALT/SGPT) 39, Alkaline Phosphatase 66, Total Protein 8.2, Albumin 3.7, Globulin 4.5, Albumin/Globulin Ratio 0.8L, Cryptococcus Antigen [ Pending] Current Medications Medications (Trade) Dose Ordered Sig/[place] Route PRN Reason Start Time Stop Time Status Last Admin Dose Admin Acetaminophen (Tylenol) 650 mg Q4H PRN ORAL Mild Pain/Temp > 100.5 09/22/19 03:15 10/22/19 03:14 09/23/19 10:54 Albuterol Sulfate (Proventil MDI) 2 puff Q6HRT INH 09/22/19 07:00 12/21/19 06:59 09/23/19 01:00 Amlodipine Besylate (Norvasc) 10 mg DAILY ORAL 09/22/19 09:00 10/22/19 08:59 09/23/19 08:56 Atorvastatin Calcium (Lipitor) 20 mg BEDTIME ORAL 09/22/19 21:00 12/21/19 20:59 09/22/19 20:15 Azithromycin (Zithromax) 250 mg DAILY ORAL 09/23/19 09:00 09/26/19 09:01 09/23/19 08:55 Ceftriaxone Sodium 1 gm/ Dextrose 55 ml @ 110 mls/hr Q24H IVPB 09/23/19 00:00 09/30/19 00:00 09/23/19 00:08 Guaifenesin/ Codeine Phosphate (Robitussin with codeine) 5 ml Q6H PRN ORAL For Cough 09/22/19 14:00 10/22/19 13:59 09/23/19 10:45 Heparin Sodium (Porcine) (Heparin 5000 units/ml) 5,000 units EVERY 12 HOURS SUBQ 09/22/19 09:00 11/06/19 08:59 Hydroxychloroquine Sulfate (Plaquenil) 200 mg BID ORAL 09/23/19 18:00 09/27/19 09:01 Lisinopril (PriniviL) 20 mg DAILY ORAL 09/22/19 09:00 10/22/19 08:59 09/23/19 08:55 Ondansetron HCl (Zofran) 4 mg Q6H PRN IVP Nausea & Vomiting 09/22/19 03:15 10/22/19 03:14 Sodium Chloride 1,000 ml @ 100 mls/hr Q10H IV 09/22/19 03:15 10/22/19 03:14 09/23/19 08:56 Saulo Rasmussen MD Sep 23, 2019 11:23
--- NOTE | 2019-09-23 13:00 | NUR ---
NURSE NOTES: Offered lunch. Patient asleep.
--- NOTE | 2019-09-23 16:00 | NUR ---
NURSE NOTES: Patient is on room air. No SOB/distress noted. Patient is still coughing. Cough syrup was given earlier. Will continue plan of care.
--- NOTE | 2019-09-23 18:02 | NUR ---
NURSE NOTES: Assisted patient to bath.
--- NOTE | 2019-09-23 19:30 | NUR ---
NURSE NOTES: Received report from MAYCOL Acevedo. Patient is alert and oriented x4. On room air. Still having dry coughing. SR on threat monitoring analyst HR 100 intact IV intact Running NS 100mlhr. Droplet precaution maintained and observed for possible COVID-19. Kept dry, clean and comfortable. with Bedside commode. Temp 102.7 cooling measure provided will rechecked. Denies any pain or discomfort. Call light placed in easy reach. Will continue plan of care.
--- NOTE | 2019-09-23 19:35 | NUR ---
HAND-OFF: Report given to MAYCOL Henley. Endorsed plan of care.
[2019-09-23] MEDS: Atorvastatin 20mg tab ORAL SCH (20:28)
--- NOTE | 2019-09-23 21:30 | NUR ---
NURSE NOTES: Uses urinal. no s/s of acute distress noted. frequent visual checks continued. call light within easy reach.
--- NOTE | 2019-09-23 23:30 | NUR ---
NURSE NOTES: Uses urinal. Bedside commode with small BM. patient able to clean himself. no s/s of acute distress noted. frequent visual checks continued. call light within easy reach.
[2019-09-24] VITALS (25 sets, daily range): BP systolic 78–164; BP diastolic 57–111
[2019-09-24] MEDS: cefTRIAXone 1 GM in D5W 55 ML IVPB SCH ×3 (00:06→22:21)
[2019-09-24] MEDS: Albuterol 90mcg Inhaler 8gm INH SCH ×4 (01:00→20:27)
--- NOTE | 2019-09-24 02:33 | NUR ---
NURSE NOTES: Patient in bed awake,alert with Temp of 102.1 cooling measure not effective. Tylenol given will rechecked and monitor patient. call light within easy reach.
--- NOTE | 2019-09-24 04:30 | NUR ---
NURSE NOTES: Uses urinal. no s/s of acute distress noted. frequent visual checks continued. call light within easy reach.
--- NOTE | 2019-09-24 05:43 | NUR ---
NURSE NOTES: Called and left message for Al[place]is in regards to patient positive results. awaiting call back
--- NOTE | 2019-09-24 05:46 | NUR ---
NURSE NOTES: MD Novoa called back. no new orders
--- NOTE | 2019-09-24 06:39 | NUR ---
NURSE NOTES: Dr Becerril made aware in regards to patient positive results.
--- NOTE | 2019-09-24 07:30 | NUR ---
HAND-OFF: Report given to Jordan SEVERINO.
--- NOTE | 2019-09-24 07:31 | NUR ---
NURSE NOTES: Late entry: PT and report received from MAYCOL Henley; AAOx4; development educator shows SR HR 88; BP WNL; tachypneic RR 27 saturating at 95% on RA; regular diet breakfast provided, PT remains on isolation for COVID+; BM runny soft large noted upon entering room total complete linens changed, morning care provided, R-hand 22g PIV remains intact flushes well infusing NS 100cc/hr; fever noted 100.5 oral; PT has PRN tylenol which will be given; PT also addressed code status change upon entering room will consult primary MD, will continue to monitor PT.
[2019-09-24] MEDS: Heparin 5000 units/ml inj SUBQ SCH ×2 (08:05→21:00)
[2019-09-24] MEDS: Lisinopril 20mg tab ORAL SCH (08:29)
[2019-09-24] MEDS: Azithromycin 250mg tab ORAL SCH (08:29)
--- NOTE | 2019-09-24 09:30 | NUR ---
NURSE NOTES: PT remains febrile, Tylenol 650mg PRN oral provided, will continue to monitor PT.
--- NOTE | 2019-09-24 09:39 | NUR ---
CASE MANAGEMENT:REVIEW 09/23/19 SI: MULTIFOCAL PNEUMONIA. BRONCHITIS. HIV COVID-19 POSITIVE 101.0 101 30 128/73 99% ON RA IS: PLAQUENIL PO BID AZITHROMYCIN PO QD IVF@100/HR IV ROCEPHIN Q24 HEPARIN SQ Q12 LISINOPRIL PO QD NORVASC PO QD : ICU STATUS DCP: FROM HOME
--- NOTE | 2019-09-24 11:00 | Pulmonology Progress Note ---
Assessment/Plan Assessment/Plan IMPRESSION: 1. Confirmed COVID-19. 2. HIV. DISCUSSION: The patient has significant adenopathy. This may be a separate process I will follow as rn cardiac. Agree with isolation and empiric antibiotics. Saulo Rasmussen M.D. Subjective Interval Events: None new; is confirmed COVID 19 now Constitutional: Reports: no symptoms HEENT: Repors: no symptoms Respiratory: Reports: no symptoms Cardiovascular: Reports: no symptoms Gastrointestinal/Abdominal: Reports: no symptoms Allergies: Coded Allergies: ERYTHROMYCIN BASE (Verified Allergy, Unknown, 05/10/15) Objective Last 24 Hour Vital Signs Date Time Temp Pulse Resp B/P (MAP) Pulse Ox O2 Delivery O2 Flow Rate FiO2 09/24/19 10:37 100.0 09/24/19 10:00 92 28 133/73 (93) 98 09/24/19 09:00 Room Air 09/24/19 09:00 99 31 163/96 (118) 95 09/24/19 08:29 128/73 09/24/19 08:28 101 128/73 09/24/19 08:00 100.5 100 29 148/87 (107) 96 09/24/19 07:49 101 30 99 Room Air 21 09/24/19 07:47 96 31 99 Room Air 21 09/24/19 07:00 102 24 128/73 (91) 95 09/24/19 06:00 102 20 146/79 (101) 95 09/24/19 05:00 85 20 156/82 (106) 95 09/24/19 04:00 Room Air 09/24/19 04:00 101.0 86 29 136/76 (96) 97 09/24/19 04:00 91 09/24/19 03:00 92 25 123/68 (86) 99 09/24/19 02:00 99 20 146/111 (123) 98 09/24/19 01:10 Room Air 09/24/19 01:09 Room Air 21 09/24/19 01:00 84 28 131/71 (91) 100 09/24/19 00:00 Room Air 09/24/19 00:00 100.0 96 40 145/89 (107) 98 09/24/19 00:00 77 09/23/19 23:00 84 23 114/59 (77) 95 09/23/19 22:00 92 20 132/83 (99) 97 09/23/19 21:00 92 30 136/89 (105) 96 09/23/19 20:50 92 33 144/82 (102) 95 09/23/19 20:00 89 09/23/19 20:00 102.4 93 13 150/82 (104) 96 09/23/19 20:00 Room Air 09/23/19 19:33 Room Air 09/23/19 19:32 Room Air 21 09/23/19 19:00 102.4 93 13 160/82 (108) 96 09/23/19 18:00 94 31 160/82 (108) 96 09/23/19 17:00 85 32 170/101 (124) 98 09/23/19 16:00 91 09/23/19 16:00 Room Air 09/23/19 16:00 99.5 89 22 157/84 (108) 98 09/23/19 15:00 109 22 144/119 (127) 96 09/23/19 14:00 84 28 146/93 (110) 98 09/23/19 13:00 Room Air 21 09/23/19 13:00 Room Air 09/23/19 13:00 85 26 134/80 (98) 97 09/23/19 12:00 101.9 96 30 145/89 (107) 95 09/23/19 12:00 91 09/23/19 12:00 Room Air 09/23/19 11:00 108 35 168/99 (122) 97 Intake and Output 09/23/19 09/24/19 19:00 07:00 Intake Total 850 ml 655 ml Output Total 750 ml 1000 ml Balance 100 ml -345 ml IV Total 850 ml 655 ml Output Urine Total 750 ml 1000 ml General Appearance: no acute distress HEENT: normocephalic Respiratory/Chest: chest wall non-tender, lungs clear Cardiovascular: normal peripheral pulses Abdomen: normal bowel sounds Microbiology Date/Time Source Procedure Growth Status 09/22/19 00:15 Nasal Nares MRSA Culture - Final NO METHICILLIN RESISTANT STAPH AUREUS... Complete 09/22/19 00:15 Nasopharynx Coronavirus COVID-19 PCR (SONIYA) - Final Complete 09/21/19 23:30 Nasal Nares - Final Complete 09/21/19 23:30 Nasal Nares - Final Complete 09/22/19 00:15 Rectum - Final NO CARBAPENEM-RESISTANT ENTEROBACTERI... Complete 09/22/19 00:15 Rectum VRE Culture - Final NO VANCOMYCIN RESISTANT ENTEROCOCCUS ... Complete Current Medications Medications (Trade) Dose Ordered Sig/[place] Route PRN Reason Start Time Stop Time Status Last Admin Dose Admin Acetaminophen (Tylenol) 650 mg Q4H PRN ORAL Mild Pain/Temp > 100.5 09/22/19 03:15 10/22/19 03:14 09/24/19 08:29 Albuterol Sulfate (Proventil MDI) 2 puff Q6HRT INH 09/22/19 07:00 12/21/19 06:59 09/24/19 07:47 Amlodipine Besylate (Norvasc) 10 mg DAILY ORAL 09/22/19 09:00 10/22/19 08:59 09/24/19 08:28 Atorvastatin Calcium (Lipitor) 20 mg BEDTIME ORAL 09/22/19 21:00 12/21/19 20:59 09/23/19 20:28 Azithromycin (Zithromax) 250 mg DAILY ORAL 09/23/19 09:00 09/26/19 09:01 09/24/19 08:29 Ceftriaxone Sodium 1 gm/ Dextrose 55 ml @ 110 mls/hr Q24H IVPB 09/23/19 00:00 09/30/19 00:00 09/24/19 00:14 Guaifenesin/ Codeine Phosphate (Robitussin with codeine) 5 ml Q6H PRN ORAL For Cough 09/22/19 14:00 10/22/19 13:59 09/23/19 20:28 Heparin Sodium (Porcine) (Heparin 5000 units/ml) 5,000 units EVERY 12 HOURS SUBQ 09/22/19 09:00 11/06/19 08:59 Hydroxychloroquine Sulfate (Plaquenil) 200 mg BID ORAL 09/23/19 18:00 09/27/19 09:01 09/24/19 08:28 Lisinopril (PriniviL) 20 mg DAILY ORAL 09/22/19 09:00 10/22/19 08:59 09/24/19 08:29 Ondansetron HCl (Zofran) 4 mg Q6H PRN IVP Nausea & Vomiting 09/22/19 03:15 10/22/19 03:14 Sodium Chloride 1,000 ml @ 100 mls/hr Q10H IV 09/22/19 03:15 10/22/19 03:14 09/24/19 05:27 Saulo Rasmussen MD Sep 24, 2019 11:00
--- NOTE | 2019-09-24 11:16 | NUR ---
RADIOLOGY DEPT., CHEST X-RAY DONE.-P.DYE
--- NOTE | 2019-09-24 12:34 | NUR ---
NURSE NOTES: Late entry: Lunch given, VSS; remains febrile will continue to monitor PT and give PRN tylenol.
--- NOTE | 2019-09-24 12:59 | Diagnostic Imaging Report ---
. Indication: Shortness of breath Technique: One view of the chest Comparison: 09/13/2019 Findings: Hazy peripheral airspace disease in the left mid and lower lung appears similar to the prior exam. Prominent interstitial opacities in the right perihilar region appears similar or perhaps slightly increased. The heart size is normal. Impression: Stable to slightly worse reticular interstitial parenchymal disease in the right perihilar region. Unchanged peripheral left lung infiltrates, over 3 days
[2019-09-24] MEDS: guaiFENesin w/Codeine 5ml Liq ud ORAL PRN ×2 (15:16→22:01)
--- NOTE | 2019-09-24 15:17 | General Progress Note ---
Assessment/Plan Problem List: (1) Suspected COVID-19 virus infection ICD Codes: R68.89 - Other general symptoms and signs SNOMED: 048770006 (2) HIV disease ICD Codes: B20 - Human immunodeficiency virus [HIV] disease SNOMED: 56745193 (3) Bronchitis ICD Codes: J40 - Bronchitis, not specified as acute or chronic SNOMED: 60353411 Status: stable Assessment/Plan: Continue hydroxychloroquine and azithromycin for coronavirus pneumonia IV antibiotic for possible need acquired pneumonia Still oxygen and breathing treatments as needed. Check stool for C. difficile. Switch lisinopril to losartan. There was discussed with the patient and he agreed. Subjective ROS Limited/Unobtainable: No Constitutional: Reports: malaise, weakness HEENT: Reports: no symptoms Cardiovascular: Reports: chest pain Respiratory: Reports: cough, shortness of breath Gastrointestinal/Abdominal: Reports: no symptoms Genitourinary: Reports: no symptoms Neurologic/Psychiatric: Reports: anxiety Endocrine: Reports: no symptoms Hematologic/Lymphatic: Reports: no symptoms Allergies: Coded Allergies: ERYTHROMYCIN BASE (Verified Allergy, Unknown, 05/10/15) All Systems: reviewed and negative except above Subjective There were no overnight events. Patient is coronavirus test came back positive. Patient is asking for more tea and soup. Continues to have low- grade temperatures. As well as a cough. He also notes some diarrhea. ID pulmonary cardiology input appreciated. Objective Last 24 Hour Vital Signs Date Time Temp Pulse Resp B/P (MAP) Pulse Ox O2 Delivery O2 Flow Rate FiO2 09/24/19 14:08 100 30 162/96 (118) 95 09/24/19 13:19 100 28 99 Room Air 21 09/24/19 13:17 98 26 96 Room Air 21 09/24/19 13:00 86 27 119/61 (80) 95 09/24/19 12:00 99.9 90 32 121/57 (78) 90 09/24/19 12:00 90 09/24/19 12:00 Room Air 09/24/19 11:00 90 31 121/57 (78) 93 09/24/19 10:37 100.0 09/24/19 10:00 92 28 133/73 (93) 98 09/24/19 09:00 Room Air 09/24/19 09:00 99 31 163/96 (118) 95 09/24/19 08:29 128/73 09/24/19 08:28 101 128/73 09/24/19 08:00 97 09/24/19 08:00 100.5 100 29 148/87 (107) 96 09/24/19 07:49 101 30 99 Room Air 21 09/24/19 07:47 96 31 99 Room Air 21 09/24/19 07:00 102 24 128/73 (91) 95 09/24/19 06:00 102 20 146/79 (101) 95 09/24/19 05:00 85 20 156/82 (106) 95 09/24/19 04:00 Room Air 09/24/19 04:00 101.0 86 29 136/76 (96) 97 09/24/19 04:00 91 09/24/19 03:00 92 25 123/68 (86) 99 09/24/19 02:00 99 20 146/111 (123) 98 09/24/19 01:10 Room Air 09/24/19 01:09 Room Air 21 09/24/19 01:00 84 28 131/71 (91) 100 09/24/19 00:00 Room Air 09/24/19 00:00 100.0 96 40 145/89 (107) 98 09/24/19 00:00 77 09/23/19 23:00 84 23 114/59 (77) 95 09/23/19 22:00 92 20 132/83 (99) 97 09/23/19 21:00 92 30 136/89 (105) 96 09/23/19 20:50 92 33 144/82 (102) 95 09/23/19 20:00 89 09/23/19 20:00 102.4 93 13 150/82 (104) 96 09/23/19 20:00 Room Air 09/23/19 19:33 Room Air 09/23/19 19:32 Room Air 21 09/23/19 19:00 102.4 93 13 160/82 (108) 96 09/23/19 18:00 94 31 160/82 (108) 96 09/23/19 17:00 85 32 170/101 (124) 98 09/23/19 16:00 91 09/23/19 16:00 Room Air 09/23/19 16:00 99.5 89 22 157/84 (108) 98 Intake and Output 09/23/19 09/24/19 19:00 07:00 Intake Total 850 ml 755 ml Output Total 750 ml 1000 ml Balance 100 ml -245 ml IV Total 850 ml 755 ml Output Urine Total 750 ml 1000 ml Height (Feet): 6 Weight (Pounds): 201 General Appearance: WD/WN, alert, confused EENT: PERRL/EOMI Neck: supple Cardiovascular: normal rate, regular rhythm Respiratory/Chest: chest wall non-tender, lungs clear, normal breath sounds, no respiratory distress Abdomen: normal bowel sounds, non tender, soft, no organomegaly Edema: no edema noted Arm (L), no edema noted Arm (R), no edema noted Leg (L), no edema noted Leg (R), no edema noted Pedal (L), no edema noted Pedal (R), no edema noted Generalized Angel Becerril MD Sep 24, 2019 15:17
--- NOTE | 2019-09-24 16:21 | NUR ---
NEUROPSYCHOLOGY MEDICAL CONSULTANT NOTE MAGDALENO attempted to call pt's cellphone [phone] but phone was turned off. MAGDALENO was informed pt's niece Radha [phone] called the unit earlier. MAGDALENO called Radha [phone] and obtained and verified information. No information was disclosed. Pt resides alone at [address] [place] [address]. Pt has one stepson living out of state. Pt has two sisters and 3 brothers. Person of contact will be Radha (niece) [phone] in case of medical emergency.
--- NOTE | 2019-09-24 17:50 | NUR ---
NURSE NOTES: Late entry: PT provided dinner, in good spirit, no S/S of respiratory distress, will continue to monitor PT.
--- NOTE | 2019-09-24 18:18 | NUR ---
NURSE NOTES: PT sister called, not on facesheet, informed PT to order picker phone call from sister to get permission to be placed on facesheet.
--- NOTE | 2019-09-24 19:15 | NUR ---
HAND-OFF: Report and PT given to MAYCOL Henley.
--- NOTE | 2019-09-24 19:30 | NUR ---
NURSE NOTES: Received report MAYCOL Ortega. Patient is alert and oriented x4. On room air. Still having dry coughing. ST on surveillance monitor HR 102. intact IV intact Running NS 100mlhr. Droplet precaution maintained and observed for positive COVID-19. Kept dry, clean and comfortable. with Bedside commode. Denies any pain or discomfort. Call light placed in easy reach. bed alarm on. bed locked n ad in low position. Will continue plan of care.
--- NOTE | 2019-09-24 19:47 | Infectious Diseases Prog Note ---
Assessment/Plan Assessment/Plan Full consult dictated on 09/22/19 Asked by primary team to follow case d/w Dr. Balbuena Patient in icu A) 1) covid-19 + - sob, fevers, cough, ? sepsis 2) hiv - t-cell > 500 3) pmh hx noted P) 1) ceftriaxone and azithromycin, hydroxychloroquine - day # 3 treatment/abx 2) monitor for hypoxia, monitor fevers 3) f/u on cultures and imaging, check serology 4) hiv tx with previous anti-virals - triumeq - check cd4 and viral load 5) will f/u Subjective Allergies: Coded Allergies: ERYTHROMYCIN BASE (Verified Allergy, Unknown, 05/10/15) Objective Vital Signs Last 24 Hour Vital Signs Date Time Temp Pulse Resp B/P (MAP) Pulse Ox O2 Delivery O2 Flow Rate FiO2 09/24/19 18:28 102.9 09/24/19 18:00 99 29 125/78 (94) 97 09/24/19 17:00 90 29 78/59 (65) 97 09/24/19 16:00 102.9 97 35 147/94 (111) 96 09/24/19 16:00 Room Air 09/24/19 16:00 105 09/24/19 15:00 99 37 126/99 (108) 93 09/24/19 14:08 100 30 162/96 (118) 95 09/24/19 13:19 100 28 99 Room Air 21 09/24/19 13:17 98 26 96 Room Air 21 09/24/19 13:00 86 27 119/61 (80) 95 09/24/19 12:00 99.9 90 32 121/57 (78) 90 09/24/19 12:00 90 09/24/19 12:00 Room Air 09/24/19 11:00 90 31 121/57 (78) 93 09/24/19 10:00 92 28 133/73 (93) 98 09/24/19 09:00 Room Air 09/24/19 09:00 99 31 163/96 (118) 95 09/24/19 08:29 128/73 09/24/19 08:28 101 128/73 09/24/19 08:00 97 09/24/19 08:00 100.5 100 29 148/87 (107) 96 09/24/19 07:49 101 30 99 Room Air 21 09/24/19 07:47 96 31 99 Room Air 21 09/24/19 07:00 102 24 128/73 (91) 95 09/24/19 06:00 102 20 146/79 (101) 95 09/24/19 05:00 85 20 156/82 (106) 95 09/24/19 04:00 Room Air 09/24/19 04:00 101.0 86 29 136/76 (96) 97 09/24/19 04:00 91 09/24/19 03:00 92 25 123/68 (86) 99 09/24/19 02:00 99 20 146/111 (123) 98 09/24/19 01:10 Room Air 09/24/19 01:09 Room Air 21 09/24/19 01:00 84 28 131/71 (91) 100 09/24/19 00:00 Room Air 09/24/19 00:00 100.0 96 40 145/89 (107) 98 09/24/19 00:00 77 09/23/19 23:00 84 23 114/59 (77) 95 09/23/19 22:00 92 20 132/83 (99) 97 09/23/19 21:00 92 30 136/89 (105) 96 09/23/19 20:50 92 33 144/82 (102) 95 09/23/19 20:00 89 09/23/19 20:00 102.4 93 13 150/82 (104) 96 09/23/19 20:00 Room Air Height (Feet): 6 Weight (Pounds): 201 Microbiology Date/Time Source Procedure Growth Status 09/23/19 00:45 Sputum Gram Stain - Final Resulted 09/23/19 00:45 Sputum Sputum Culture Pending Resulted 09/22/19 00:15 Nasal Nares MRSA Culture - Final NO METHICILLIN RESISTANT STAPH AUREUS... Complete 09/22/19 00:15 Nasopharynx Coronavirus COVID-19 PCR (SONIYA) - Final Complete 09/21/19 23:30 Nasal Nares - Final Complete 09/21/19 23:30 Nasal Nares - Final Complete 09/22/19 00:15 Rectum - Final NO CARBAPENEM-RESISTANT ENTEROBACTERI... Complete 09/22/19 00:15 Rectum VRE Culture - Final NO VANCOMYCIN RESISTANT ENTEROCOCCUS ... Complete Current Medications Medications (Trade) Dose Ordered Sig/[place] Route PRN Reason Start Time Stop Time Status Last Admin Dose Admin Acetaminophen (Tylenol) 650 mg Q4H PRN ORAL Mild Pain/Temp > 100.5 09/22/19 03:15 10/22/19 03:14 09/24/19 17:40 Albuterol Sulfate (Proventil MDI) 2 puff Q6HRT INH 09/22/19 07:00 12/21/19 06:59 09/24/19 13:17 Amlodipine Besylate (Norvasc) 10 mg DAILY ORAL 09/22/19 09:00 10/22/19 08:59 09/24/19 08:28 Atorvastatin Calcium (Lipitor) 20 mg BEDTIME ORAL 09/22/19 21:00 12/21/19 20:59 09/23/19 20:28 Azithromycin (Zithromax) 250 mg DAILY ORAL 09/23/19 09:00 09/26/19 09:01 09/24/19 08:29 Ceftriaxone Sodium 1 gm/ Dextrose 55 ml @ 110 mls/hr Q24H IVPB 09/23/19 00:00 09/30/19 00:00 09/24/19 00:14 Guaifenesin/ Codeine Phosphate (Robitussin with codeine) 5 ml Q6H PRN ORAL For Cough 09/22/19 14:00 10/22/19 13:59 09/24/19 15:16 Heparin Sodium (Porcine) (Heparin 5000 units/ml) 5,000 units EVERY 12 HOURS SUBQ 09/22/19 09:00 11/06/19 08:59 Hydroxychloroquine Sulfate (Plaquenil) 200 mg BID ORAL 09/23/19 18:00 09/27/19 09:01 09/24/19 17:16 Losartan Potassium (Cozaar) 50 mg DAILY ORAL 09/25/19 09:00 10/25/19 08:59 Ondansetron HCl (Zofran) 4 mg Q6H PRN IVP Nausea & Vomiting 09/22/19 03:15 10/22/19 03:14 Sodium Chloride 1,000 ml @ 100 mls/hr Q10H IV 09/22/19 03:15 10/22/19 03:14 09/24/19 15:16 Christa Novoa MD Sep 24, 2019 19:47
--- NOTE | 2019-09-24 21:30 | NUR ---
NURSE NOTES: Uses urinal. no s/s of acute distress noted. frequent visual checks continued. call light within easy reach.
[2019-09-24] MEDS: Atorvastatin 20mg tab ORAL SCH (22:01)
--- NOTE | 2019-09-24 23:30 | NUR ---
NURSE NOTES: Patient in bed awake,alert able to verbalize needs to staff. Encouraged patient to verbalize needs, fears and feelings to staff. denies any pain or discomfort. Tylenol given will rechecked and monitor patient. call light within easy reach.
[2019-09-25] VITALS (7 sets, daily range): BP systolic 150–202; BP diastolic 84–150
[2019-09-25] MEDS: Albuterol 90mcg Inhaler 8gm INH SCH ×2 (01:00→07:00)
--- NOTE | 2019-09-25 01:45 | Progress Note ---
DATE: 09/24/2019 CARDIOLOGY PROGRESS NOTE SUBJECTIVE: The patient is COVID positive, on therapy date #3. Still with hypoxia, congestion, and high-grade fevers. Blood pressure parameters are slightly better. The patient is not examined due to isolation concerns. LABORATORY AND DIAGNOSTIC DATA: Labs pending. Chest x-ray reviewed, notable for increasing interstitial parenchymal disease bilaterally. IMPRESSION: 1. COVID pneumonia. 2. HIV positive. 3. Ischemic cardiomyopathy. 4. Chronic kidney disease. 5. Hypertensive heart disease with labile blood pressure. PLAN: 1. Antipyretics. 2. Hold statin. 3. Holding aspirin for now. 4. Check troponin. 5. Titrate antihypertensives. 6. Antimicrobials per infectious disease team. 7. Nasal oxygen. 8. DVT prophylaxis. Александр Thakur M.D. DR: BEV JOB#: [id number] CC:
--- NOTE | 2019-09-25 01:45 | Progress Note ---
DATE: 09/23/2019 CARDIOLOGY PROGRESS NOTE Late entry. CRITICAL CARE: 45 minutes. SUBJECTIVE: The patient is seen and evaluated, and case discussed with ICU staff. COVID positive. On room air. Moderate secretions persist. Blood pressure parameters are increasing. T-max 102.9. PHYSICAL EXAMINATION: VITAL SIGNS: Blood pressure 177/95, heart rate 88, and respiratory rate 25. Monitored rhythm, sinus and sinus tachycardia. LUNGS: Bilateral breath sounds. Scattered rhonchi. CARDIAC: Regular rhythm and rate. Normal S1 and S2. ABDOMEN: Soft. EXTREMITIES: No edema. LABORATORY DATA: White count 5.4 and hemoglobin 13.4. Potassium 4.1, BUN 17, and creatinine 1.4. IMPRESSION: 1. COVID pneumonia. 2. Ischemic cardiomyopathy. 3. Hypertensive heart disease with rising blood pressure trends. 4. HIV positive. 5. Chronic kidney disease. 6. Hypoxia. PLAN: 1. Continue therapy for COVID. 2. Hydration. 3. Antipyretics. 4. Titrate antihypertensives. 5. Hold anti-platelet therapy and statin drug. 6. Acetaminophen for fevers. 7. DVT prophylaxis. Александр Thakur M.D. DR: BEV JOB#: [id number] CC:
--- NOTE | 2019-09-25 02:30 | NUR ---
NURSE NOTES: Assisted patient to bedside commode. Changed all lines. Instructed patient to use call light for assistance to prevent fall. talk therapy provided. frequent visual checks continued.
--- NOTE | 2019-09-25 03:15 | Consultation ---
DATE OF CONSULTATION: 09/22/2019 CONSULTING PHYSICIAN: Александр Thakur M.D. REQUESTING PHYSICIAN: Angel Becerril M.D. REASON FOR CONSULTATION: Severe sepsis and possible COVID in the setting of ischemic cardiomyopathy. HISTORY OF PRESENT ILLNESS: This 64-year-old male has a history of HIV, hypertension, ischemic cardiomyopathy, and kidney disease. He presented to the emergency room with a week-long history of cough, congestion, fevers, and chills and has had neighborhood coronavirus contact. In the emergency room, he was febrile to almost 100 with an elevated blood pressure and an abnormal CAT scan of the chest. He is being admitted to the intensive care unit with high suspicion for COVID-19 infection. I have been asked to assist with cardiovascular care. PAST MEDICAL HISTORY: HIV with normal T-cells count and undetectable viral load, coronary artery disease, hypertension with hypertensive heart disease, hyperlipidemia, history of nephrectomy, prostatic hypertrophy, status post nephrectomy for kidney cancer. ALLERGIES: Erythromycin. FAMILY HISTORY: Noncontributory. SOCIAL HISTORY: Negative for smoking, alcohol, or substance abuse. MEDICATIONS: Reviewed and reconciled. REVIEW OF SYSTEMS: He was hospitalized here in May 2019 with chest pain and underwent a full cardiac workup that included a myocardial perfusion scan that revealed no reversible ischemia and normal ejection fraction. In addition, he had an echocardiogram revealed a normal ejection fraction and no significant pulmonary hypertension. There is no history of thyroid disorder. He is on anti-lipid therapy. There is no history of diabetes mellitus. He has not had any prior history of chronic obstructive pulmonary disease, steroid use, abnormal clotting factors or coagulopathy. PHYSICAL EXAMINATION: VITAL SIGNS: Temperature 99.9, blood pressure 140/80, pulse 102, and respirations 18. HEENT: Oropharynx clear with no thrush. NECK: Supple. LUNGS: Bilateral rhonchi. CARDIAC: Regular rhythm. Rapid rate. Normal S1 and S2 with no murmur. ABDOMEN: Soft. EXTREMITIES: No edema. LABORATORY DATA: Labs are reviewed. IMPRESSION: 1. Probable COVID infection. 2. Community-acquired pneumonia. 3. Ischemic heart disease. 4. Hypertensive heart disease with labile blood pressure. 5. Stable angina. 6. History of nephrectomy. PLAN: 1. Isolation. 2. Antimicrobials. 3. Respiratory hygiene. 4. Continue baseline cardiovascular regimen. 5. Titrate antihypertensives. 6. Maintain adequate hydration at this time with isotonic saline. 7. DVT prophylaxis. 8. If positive for COVID, the patient will be at increase risk for cardiovascular events in view of his underlying coronary artery disease prior history of cardiomyopathy. Александр Thakur M.D. DR: RASHAD JOB#: [id number] CC:
--- NOTE | 2019-09-25 04:30 | NUR ---
NURSE NOTES: assisted patient with am care. with bedside commode. all needs attended promptly. droplet isolation maintained and observed. patient requested warm tea tolerated well. frequent visual checks continued. will continue plan of care.
[2019-09-25] MEDS: guaiFENesin w/Codeine 5ml Liq ud ORAL PRN (05:27)
--- NOTE | 2019-09-25 06:00 | NUR ---
NURSE NOTES: Uses urinal. no s/s of acute distress noted. frequent visual checks continued. call light within easy reach. 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 charge nurse aware.
--- NOTE | 2019-09-25 07:15 | NUR ---
HAND-OFF: Report given to Jordan SEVERINO. Dr Becerril made aware of patient wants to go home.
--- NOTE | 2019-09-25 07:16 | NUR ---
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
--- NOTE | 2019-09-25 08:03 | NUR ---
NURSE NOTES: Notified by [facility] that PT refused scheduled morning albuterol medication/inhaler treatment.
--- NOTE | 2019-09-25 08:53 | Pulmonology Progress Note ---
Assessment/Plan Assessment/Plan IMPRESSION: 1. Confirmed COVID-19. 2. HIV. DISCUSSION: The patient has significant adenopathy. This may be a separate process I will follow as powder worker. Agree with isolation and empiric antibiotics. Having diarrhea Saulo Rasmussen M.D. Subjective Interval Events: None new Constitutional: Reports: no symptoms HEENT: Repors: no symptoms Respiratory: Reports: no symptoms Cardiovascular: Reports: no symptoms Gastrointestinal/Abdominal: Reports: diarrhea Genitourinary: Reports: no symptoms Allergies: Coded Allergies: ERYTHROMYCIN BASE (Verified Allergy, Unknown, 05/10/15) Objective Last 24 Hour Vital Signs Date Time Temp Pulse Resp B/P (MAP) Pulse Ox O2 Delivery O2 Flow Rate FiO2 09/25/19 07:55 Room Air 21 09/25/19 07:55 97 Room Air 21 09/25/19 07:54 97 Room Air 21 09/25/19 06:00 105 30 150/84 (106) 96 09/25/19 05:56 101.0 09/25/19 05:22 110 31 196/103 (134) 86 09/25/19 05:00 120 34 94 09/25/19 04:00 100.0 119 23 202/90 (127) 91 09/25/19 04:00 Room Air 09/25/19 04:00 94 09/25/19 03:47 121 20 184/92 (122) 84 09/25/19 03:00 99 32 88 09/25/19 02:00 100 35 93 09/25/19 01:12 Nasal Cannula 3.0 32 09/25/19 01:12 Nasal Cannula 3.0 32 09/25/19 01:00 102 25 155/150 (152) 93 09/25/19 00:00 102 09/25/19 00:00 Room Air 09/25/19 00:00 93 30 163/92 (115) 98 09/24/19 23:00 107 27 164/95 (118) 95 09/24/19 22:48 94 26 161/93 (115) 94 09/24/19 22:00 95 30 135/88 (104) 91 09/24/19 21:00 92 20 149/84 (105) 93 09/24/19 20:30 94 Nasal Cannula 3.0 32 09/24/19 20:27 Nasal Cannula 3.0 32 09/24/19 20:27 Nasal Cannula 3.0 32 09/24/19 20:00 98 09/24/19 20:00 99.9 92 20 149/84 (105) 93 09/24/19 20:00 Room Air 09/24/19 19:00 89 29 141/71 (94) 93 09/24/19 18:00 99 29 125/78 (94) 97 09/24/19 17:00 90 29 78/59 (65) 97 09/24/19 16:00 102.9 97 35 147/94 (111) 96 09/24/19 16:00 Room Air 09/24/19 16:00 105 09/24/19 15:00 99 37 126/99 (108) 93 09/24/19 14:08 100 30 162/96 (118) 95 09/24/19 13:19 100 28 99 Room Air 21 09/24/19 13:17 98 26 96 Room Air 21 09/24/19 13:00 86 27 119/61 (80) 95 09/24/19 12:00 99.9 90 32 121/57 (78) 90 09/24/19 12:00 90 09/24/19 12:00 Room Air 09/24/19 11:00 90 31 121/57 (78) 93 09/24/19 10:00 92 28 133/73 (93) 98 09/24/19 09:00 Room Air 09/24/19 09:00 99 31 163/96 (118) 95 Intake and Output 09/24/19 09/25/19 19:00 07:00 Intake Total 1200 ml 555 ml Output Total 500 ml 1100 ml Balance 700 ml -545 ml Intake Oral 300 ml IV Total 1200 ml 255 ml Output Urine Total 500 ml 1100 ml # Bowel Movements 2 2 General Appearance: no acute distress HEENT: normocephalic Respiratory/Chest: chest wall non-tender Cardiovascular: normal peripheral pulses Abdomen: normal bowel sounds Microbiology Date/Time Source Procedure Growth Status 09/23/19 00:45 Sputum Gram Stain - Final Complete 09/23/19 00:45 Sputum Sputum Culture - Final NORMAL UPPER RESPIRATORY SHAQUILLE PRESENT Complete Current Medications Medications (Trade) Dose Ordered Sig/[place] Route PRN Reason Start Time Stop Time Status Last Admin Dose Admin Acetaminophen (Tylenol) 650 mg Q4H PRN ORAL Mild Pain/Temp > 100.5 09/22/19 03:15 10/22/19 03:14 09/25/19 05:26 Albuterol Sulfate (Proventil MDI) 2 puff Q6HRT INH 09/22/19 07:00 12/21/19 06:59 09/24/19 13:17 Amlodipine Besylate (Norvasc) 10 mg DAILY ORAL 09/22/19 09:00 10/22/19 08:59 09/24/19 08:28 Azithromycin (Zithromax) 250 mg DAILY ORAL 09/23/19 09:00 09/26/19 09:01 09/24/19 08:29 Ceftriaxone Sodium 1 gm/ Dextrose 55 ml @ 110 mls/hr Q24H IVPB 09/23/19 00:00 09/30/19 00:00 09/24/19 22:21 Guaifenesin/ Codeine Phosphate (Robitussin with codeine) 5 ml Q6H PRN ORAL For Cough 09/22/19 14:00 10/22/19 13:59 09/25/19 05:27 Heparin Sodium (Porcine) (Heparin 5000 units/ml) 5,000 units EVERY 12 HOURS SUBQ 09/22/19 09:00 11/06/19 08:59 Hydroxychloroquine Sulfate (Plaquenil) 200 mg BID ORAL 09/23/19 18:00 09/27/19 09:01 09/24/19 17:16 Losartan Potassium (Cozaar) 50 mg DAILY ORAL 09/25/19 09:00 10/25/19 08:59 Ondansetron HCl (Zofran) 4 mg Q6H PRN IVP Nausea & Vomiting 09/22/19 03:15 10/22/19 03:14 Sodium Chloride 1,000 ml @ 100 mls/hr Q10H IV 09/22/19 03:15 10/22/19 03:14 09/24/19 22:22 Saulo Rasmussen MD Sep 25, 2019 08:53
[2019-09-25] MEDS ORDERED: Losartan 50mg tab ORAL SCH (09:00)
[2019-09-25] MEDS: Heparin 5000 units/ml inj SUBQ SCH (09:00)
[2019-09-25] MEDS: Azithromycin 250mg tab ORAL SCH (09:02)
--- NOTE | 2019-09-25 09:31 | General Progress Note ---
Assessment/Plan Problem List: (1) Suspected COVID-19 virus infection ICD Codes: R68.89 - Other general symptoms and signs SNOMED: 152010809 (2) HIV disease ICD Codes: B20 - Human immunodeficiency virus [HIV] disease SNOMED: 08049277 (3) Bronchitis ICD Codes: J40 - Bronchitis, not specified as acute or chronic SNOMED: 84389455 Status: stable Assessment/Plan: Continue hydroxychloroquine and azithromycin for coronavirus pneumonia IV antibiotic for community acquired pneumonia oxygen and breathing treatments as needed. Check stool for C. difficile. Switch lisinopril to losartan. Patient is currently stable. Does not need ICU care. Does not appear stable for discharge home yet. He still requires oxygen and desaturates when walking in his room. Subjective ROS Limited/Unobtainable: No Constitutional: Reports: fever HEENT: Reports: no symptoms Cardiovascular: Reports: no symptoms Respiratory: Reports: cough Gastrointestinal/Abdominal: Reports: diarrhea Genitourinary: Reports: no symptoms Neurologic/Psychiatric: Reports: no symptoms Endocrine: Reports: no symptoms Hematologic/Lymphatic: Reports: anemia Allergies: Coded Allergies: ERYTHROMYCIN BASE (Verified Allergy, Unknown, 05/10/15) All Systems: reviewed and negative except above Subjective There were no overnight events. Patient continues to have low-grade fevers. He is asking if he can go home. He complains of intermittent episodes of diarrhea. Sometimes it so severe he cannot get to the commode. He is on hydroxychloroquine and azithromycin for coronavirus disease. Patient is been compliant with medications. He does not like his food. Objective Last 24 Hour Vital Signs Date Time Temp Pulse Resp B/P (MAP) Pulse Ox O2 Delivery O2 Flow Rate FiO2 09/25/19 09:02 150/84 09/25/19 09:02 105 150/84 09/25/19 07:55 Room Air 21 09/25/19 07:55 97 Room Air 21 09/25/19 07:54 97 Room Air 21 09/25/19 06:00 105 30 150/84 (106) 96 09/25/19 05:56 101.0 09/25/19 05:22 110 31 196/103 (134) 86 09/25/19 05:00 120 34 94 09/25/19 04:00 100.0 119 23 202/90 (127) 91 4/1/20 04:00 Room Air 09/25/19 04:00 94 09/25/19 03:47 121 20 184/92 (122) 84 09/25/19 03:00 99 32 88 09/25/19 02:00 100 35 93 09/25/19 01:12 Nasal Cannula 3.0 32 09/25/19 01:12 Nasal Cannula 3.0 32 09/25/19 01:00 102 25 155/150 (152) 93 09/25/19 00:00 102 09/25/19 00:00 Room Air 09/25/19 00:00 93 30 163/92 (115) 98 09/24/19 23:00 107 27 164/95 (118) 95 09/24/19 22:48 94 26 161/93 (115) 94 09/24/19 22:00 95 30 135/88 (104) 91 09/24/19 21:00 92 20 149/84 (105) 93 09/24/19 20:30 94 Nasal Cannula 3.0 32 09/24/19 20:27 Nasal Cannula 3.0 32 09/24/19 20:27 Nasal Cannula 3.0 32 09/24/19 20:00 98 09/24/19 20:00 99.9 92 20 149/84 (105) 93 09/24/19 20:00 Room Air 09/24/19 19:00 89 29 141/71 (94) 93 09/24/19 18:00 99 29 125/78 (94) 97 09/24/19 17:00 90 29 78/59 (65) 97 09/24/19 16:00 102.9 97 35 147/94 (111) 96 09/24/19 16:00 Room Air 09/24/19 16:00 105 09/24/19 15:00 99 37 126/99 (108) 93 09/24/19 14:08 100 30 162/96 (118) 95 09/24/19 13:19 100 28 99 Room Air 21 09/24/19 13:17 98 26 96 Room Air 21 09/24/19 13:00 86 27 119/61 (80) 95 09/24/19 12:00 99.9 90 32 121/57 (78) 90 09/24/19 12:00 90 09/24/19 12:00 Room Air 09/24/19 11:00 90 31 121/57 (78) 93 09/24/19 10:00 92 28 133/73 (93) 98 Intake and Output 09/24/19 09/25/19 18:59 06:59 Intake Total 1200 ml 655 ml Output Total 500 ml 1100 ml Balance 700 ml -445 ml Intake Oral 300 ml IV Total 1200 ml 355 ml Output Urine Total 500 ml 1100 ml # Bowel Movements 2 2 Height (Feet): 6 Weight (Pounds): 200 Objective General Appearance: WD/WN, alert, confused EENT: PERRL/EOMI Neck: supple Cardiovascular: normal rate, regular rhythm Respiratory/Chest: chest wall non-tender, lungs clear, normal breath sounds, no respiratory distress Abdomen: normal bowel sounds, non tender, soft, no organomegaly Edema: no edema noted Arm (L), no edema noted Arm (R), no edema noted Leg (L), no edema noted Leg (R), no edema noted Pedal (L), no edema noted Pedal (R), no edema noted Generalized Angel Becerril MD Sep 25, 2019 09:31
--- NOTE | 2019-09-25 09:35 | NUR ---
NURSE NOTES: Patient wanted to go home AMA -RN encouraged him to stay but to no avail- patient insisted to leave- Dr. Becerril notified made aware that patient wanted to leave AMA
--- NOTE | 2019-09-25 09:50 | NUR ---
NURSE NOTES: Patient's sister ( Sonia Thompson) notified that her brother Clinton Garcia insisted to go AMA despite of explanation that he needed to stay to continue his medication , but to no avail Addendum: 09/25/19 at 0941 by RACHEL CHIN RN RN Sonia Thompson
--- NOTE | 2019-09-25 11:18 | NUR ---
NURSE NOTES: Pt left AMA, contacted the [facility] and contacted [employer] spoke with dispatch [phone] to report regarding this pt's condition.
--- NOTE | 2019-09-25 11:25 | NUR ---
NURSE NOTES: Late entry: PT left AMA, brought to front of hospital via wheelchair, teaching given while taking PT to the front of the hospital, advised him to stay quarantined for his safety and others. NEVILLE Aiken and CORTNEY Pizano made aware.
--- NOTE | 2019-09-25 12:28 | NUR ---
NURSE NOTES: NEVILLE Aiken spoke with Georgette Garcia, sister of PT @ [phone]; informed Georgette that PT went AMA.
--- NOTE | 2019-09-26 02:00 | Progress Note ---
DATE: 09/25/2019 CARDIOLOGY PROGRESS NOTE SUBJECTIVE: The patient is on oxygen. He desaturates with an activity. He is in no respiratory distress. He remains afebrile and continues to have tachycardia. His blood pressure remains quite labile. OBJECTIVE: LUNGS: Bilateral breath sounds. Rhonchi. HEART: Regular rhythm. Rapid rate. Normal S1, S2. ABDOMEN: Soft. EXTREMITIES: No edema. IMPRESSION: 1. COVID-19 pneumonia. 2. Sepsis. 3. Labile hypertension. PLAN: 1. Continue antimicrobials per Infectious Disease events solutions consultant. 2. Monitor QT interval while on hydroxychloroquine therapy. 3. Titrate antihypertensives. 4. Monitor volume status and trend natriuretic peptide assay. 5. Isolation precautions. Александр Thakur M.D. DR: CHIN JOB#: [id number] CC:
--- NOTE | 2019-09-26 18:08 | Discharge Summary ---
Discharge Summary Discharge Summary _ DATE OF ADMISSION: 09/22/2019 DATE OF DISCHARGE: 09/25/2019 Patient left AGAINST MEDICAL ADVICE REASON FOR ADMISSION: 64 years old male with past medical history of HIV, hypertension, hypertensive heart disease, prior nephrectomy, BPH, presented with complaints of fevers, cough and congestion for the last week. Patient reported that multiple other people in his neighborhood had coronavirus infection. Patient tried supportive care at home , but symptoms did not improve, and he presented to emergency department for further evaluation. Upon evaluation patient was markedly hypertensive and had l fever. CT scan of the chest revealed bulky lymphadenopathy, scattered ground-glass opacity bilaterally. Chest x-ray revealed bilateral lower lobe consolidative . Patient was tested for COVID 19 infection in emergency department. Patient pancultured , received fluid resuscitation, empiric antibiotic and admitted to contact and droplet isolation room. CONSULTANTS: model and pattern supervisor pulmonary Dr. Rasmussen ID specialist Dr. Novoa HOSPITAL COURSE: Patient admitted. Patient was on IV fluids and empiric antibiotics. Influenza screen for A and B was negative. COVID 19 infections was confirmed by a positive testing. Sputum culture was negative. Follow-up chest x-ray revealed stable to slightly worse reticular interstitial parenchymal disease in the right perihilar region. Unchanged serial left lung infiltrates over 3 days. Patient was tachycardic with heart rate between 100 and 120. and demonstrated fevers. Antibiotic provided as per ID specialist recommendation. Antibiotic regimen consisted of azithromycin and ceftriaxone. Patient also started on hydroxychloroquine. Antipyretic provided needed. Antitussive provided as needed. Sputum culture came back negative. Supplemental oxygen provided and titrated to keep pulse oximetry above 92%. Nebulizing med pretreatment with bronchodilator provided as needed. Home medication continued. Antihypertensive regimen was optimized as per model and pattern supervisor to bring blood pressure under control. DVT prophylaxis provided. Patient with a known history of HIV disease with T-cell above 500. Patient is taking HAART therapy at home. Volumes were closely monitored. Renal parameters and electrolytes were closely monitored. Electrolytes corrected as needed. Nephrotoxins were avoided. Prior to signing AMA creatinine down to 1.4. Patient decided to leave AGAINST MEDICAL ADVICE. Patient was told to stay in quarantine for his and other safety. Patient should stay in a separate room and use separate bathroom and should separate himself from other people in his house. He should wear a face mask , if need to be in the same room. Patient was counseled to avoid sharing household items. Continue isolation for 7 days from onset of symptoms or for 3 days after fever resolution , whichever is longer. Patient verbalized understanding of instruction. The risks and consequences of signing AGAINST MEDICAL ADVICE were discussed with patient in detail. Patient verbalized understanding, nevertheless signed AMA form and left. FINAL DIAGNOSES: Sepsis Confirmed COVID 19 pneumonia Hypertensive heart disease with labile blood pressure Ischemic cardiomyopathy Chronic kidney disease I have been assigned to dictate discharge summary for this account. I was not involved in the patient's management. Dary Velasco AUTOMATION TESTER Sep 26, 2019 18:08
== END 2019-09-25 11:05 | disposition left against medical advice (07) | DRG 974 ==
LOC: EMR 23:41 → ICU 09-22 00:10 → EDBEDREQ 09-22 01:27
DX: U07.1 COVID-19 (principal); R65.20 Severe sepsis without septic shock; B20 Human immunodeficiency virus [HIV] disease; J12.89 Other viral pneumonia; I12.9 Hypertensive chronic kidney disease with stage 1 through stage 4 chronic kidney disease, or unspecified chronic kidney disease; N18.9 Chronic kidney disease, unspecified; I25.5 Ischemic cardiomyopathy; Z88.1 Allergy status to other antibiotic agents; N40.0 Benign prostatic hyperplasia without lower urinary tract symptoms; E78.5 Hyperlipidemia, unspecified; R09.02 Hypoxemia
CPT/HCPCS: 36415; 71045; 71250; 80048; 80053; 82164; 82962; 83615; 85025; 86710; 86738; 87070; 87081; 87205; 87449; 87635; 93005; 94640; 96361; 96365; 96367; 99285; J7030